=== PATIENT | female | born 2000 | race Caucasian/White ===

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

== ENCOUNTER 2021-01-09 10:44 | Emergency (ER) | payer MEDICAID, SELFPAY ==
[2021-01-09 10:46] VITALS: BP 122/80; PULSE 113; RESP 18; TEMP 36.2; O2SAT 99; BMI 23.2
--- NOTE | 2021-01-09 10:59 | EDS_ITS ---
HPI History of Present Illness Chief Complaint: Nausea/Vomiting Detail of Chief Complaint: Nausea and vomiting x8 hours Informant: patient Narrative Narrative: Patient presents to the emergency department with complaint of vomiting for the last 8 hours. Patient believes that she drank too much alcohol and has alcohol poisoning. Patient states that she never drinks alcohol but last night had 5 shots of vodka. Her last drink was approximately midnight. Patient complaining of some upper abdomen discomfort and now just having dry heaves. She denies fever or recent illness. Patient denies diarrhea. She denies urinary symptoms. Last menstrual period was December 17. Prior similar symptoms: No PFSH PFSH Medical History no medical history Home Medications ondansetron 4 mg PO Q8H PRN PRN #10 tab 01/09/21 [Rx Last Taken Unknown] Allergy/AdvReac Type Severity Reaction Status Date / Time No Known Allergies Allergy Verified 01/09/21 10:45 Social History Smoking Status: Never smoker ROS ROS ED Constitutional Constitutional ED: Reports systems reviewed and no addt'l complaints, except as documented; Denies body ache(s), change in weight or chills Eyes Eyes: Denies acute decrease in peripheral vision, change in vision, double vision or loss of vision ENT ENT ED: Reports none; Denies ear pain, lip swelling, loss taste/smell, neck pain, otalgia or sore throat Cardiovascular Cardiovascular: Reports none; Denies abdominal pain, chest pain with activity, leg edema, lightheadedness, palpitations, rapid heart rate or syncope Respiratory/Chest Respiratory/Chest: Reports none; Denies change in mental status, dry cough, dyspnea, hemoptysis, shortness of breath at rest or shortness of breath with exertion Gastrointestinal Gastrointestinal: Reports none, abdominal pain, nausea and vomiting; Denies change in stool character, diarrhea, hematemesis, hematochezia, melena or rectal bleeding Genitourinary Genitourinary ED: Reports none; Denies abdominal discomfort, anuria, dysuria, genital pain or polyuria Musculoskeletal Musculoskeletal: Reports none; Denies arthralgias, back pain, difficulty walking, extremity pain, muscle weakness or myalgias Integumentary Reports none; Denies abscess or rash Neurologic Neurologic: Reports none; Denies abnormal gait, confusion, focal weakness, frequent falls, headache(s), loss of vision, numbness, paresthesias, radicular pain, vertigo or weakness Psychiatric Psychiatric: Reports systems reviewed and no addt'l complaints, except as documented and none; Denies behavioral changes, confusion, difficulty concentrating, hallucinations, suicidal ideation, tactile hallucinations or visual hallucinations Endocrine Endocrinology: Denies none, cold intolerance, excessive sweating, fatigue or heat intolerance Hematologic/Lymphatic Hematologic/Lymphatic: Reports none; Denies anemia, easy bleeding or easy bruising Allergic/Immunologic Allergic/Immunologic ED: Denies as per HPI, none, lip swelling, mouth swelling, throat swelling, tongue swelling or hives EXAM Physical Exam Const Vital Signs: 01/09/21 10:46 Temperature 97.2 F L Temperature Source Temporal Pulse Rate 113 H Respiratory Rate 18 Blood Pressure 122/80 H Blood Pressure Mean 94 Pulse Ox 99 Oxygen Delivery Method Room Air Positive well nourished and well developed General Appearance ED: well developed and NAD HEENT Reports TM's clear and moist mucous membranes normocephalic and atraumatic; Negative for trauma or tenderness Tympanic Membrane ED: Yes TM's clear Eyes PERRL and EOMs intact bilaterally General Eye ED: Negative for pale conjunctiva or scleral icterus Neck no lymphadenopathy, supple and no JVD General: Negative for tenderness Chest Wall inspection of chest normal and palpation of chest normal Chest: Negative for tenderness Resp normal respiratory effort and clear to auscultation bilaterally Effort and Inspection: Negative for respiratory distress or pain with movement Auscultation: Negative for rhonchi, wheezes or diminished lung sounds Cardio regular rate, regular rhythm, S1 normal heart sound, S2 normal heart sound and no murmurs Peripheral Pulses: pulses 2+ throughout GI normal to inspection, nondistended, normoactive bowel sounds, soft to palpation, non-distended and no masses GI Narrative: Mild tenderness over the epigastric region with some mild guarding. There is no rebound, rigidity, or peritoneal signs. Patient also has mild tenderness over right upper quadrant. Palpation: soft Back/Spine no CVA tenderness and no thoracic nor lumbar tenderness Extremity normal to inspection General Extremety ED: Negative for edema General Extremity: Negative for edema Neuro oriented x3, CN's II-XII intact bilaterally, no sensory deficits noted and gait normal Sensorium / Orientation: awake, alert, oriented to person, oriented to place and oriented to time Motor Exam: strength 5/5 throughout and strength abnormal Psych mental status grossly normal Skin no rashes or lesions noted and no wounds MDM MDM MDM Narrative Medical decision making narrative: IV line was established initially on arrival however patient told the nursing staff that it was very painful and was asked to have it removed. The IV was reestablished and then again it was asked to be removed by the patient. Repeat attempts at another IV were difficult and patient now does not want the IV. Patient was given Zofran IM 4 mg. She had no further vomiting. She was able to tolerate a p.o. challenge. Patient did have an elevated white blood cell count and I suspect this is likely reactive from retching and vomiting. At this point on reexamination her abdomen is benign. Patient had not been ill prior to the episode of drinking last night and I suspect this is all related to alcohol. Patient will be given a prescription for Zofran for home. She is advised to return if persistent vomiting worsening abdominal pain, fever, or condition worsen anyway. Lab Data Attestation: I reviewed the patient's lab results. Labs: Laboratory Results - last 24 hr 01/09/21 01/09/21 01/09/21 11:15 11:15 11:15 WBC 16.4 H RBC 4.59 Hgb 13.8 Hct 40.4 MCV 88.0 MCH 30.1 MCHC 34.2 RDW Std Deviation 37.6 RDW Coeff of Mathew 11.7 Plt Count Immature Gran % (Auto) 0.300 Neut % (Auto) 89.8 H Lymph % (Auto) 8.0 L [place] % (Auto) 1.5 Eos % (Auto) 0.0 Baso % (Auto) 0.4 Absolute Neuts (auto) 14.7 H Absolute Lymphs (auto) 1.31 Nucleated RBC % 0 Differential Comment SCANNED Platelet Estimate ADEQUATE Sodium 136 Potassium 4.1 Chloride 101 Carbon Dioxide 18.0 L Anion Gap 17 H BUN 24 H Creatinine 0.74 Estim Creat Clear Calc 92.27 Est GFR (MDRD) Af Amer 128 Est GFR (MDRD) Non-Af 106 BUN/Creatinine Ratio 32.2 H Glucose 73 L Calcium 9.7 Total Bilirubin 0.50 AST 51 H ALT 37 Alkaline Phosphatase 107 Total Protein 9.3 H Albumin 4.9 Globulin 4.4 H Albumin/Globulin Ratio 1.1 Lipase 83 Serum , Qual NEGATIVE Ethyl Alcohol 01/09/21 11:15 WBC RBC Hgb Hct MCV MCH MCHC RDW Std Deviation RDW Coeff of Mathew Plt Count Immature Gran % (Auto) Neut % (Auto) Lymph % (Auto) [place] % (Auto) Eos % (Auto) Baso % (Auto) Absolute Neuts (auto) Absolute Lymphs (auto) Nucleated RBC % Differential Comment Platelet Estimate Sodium Potassium Chloride Carbon Dioxide Anion Gap BUN Creatinine Estim Creat Clear Calc Est GFR (MDRD) Af Amer Est GFR (MDRD) Non-Af BUN/Creatinine Ratio Glucose Calcium Total Bilirubin AST ALT Alkaline Phosphatase Total Protein Albumin Globulin Albumin/Globulin Ratio Lipase Serum , Qual Ethyl Alcohol 5.0 Discharge Plan Triage Chief Complaint: Nausea/Vomiting ED Provider: Aura Gutierrez Dx/Rx/DC Orders Clinical Impression: Alcohol withdrawal Instructions: Alcohol Withdrawal: What to Expect, ED Vomiting (Adult) Prescriptions: New ondansetron [ondansetron] 4 MG tablet 4 mg PO Q8H PRN PRN (Reason: Nausea) Qty: 10 RF: 0 Primary Care Provider: Rogelio Mathis Referrals: Rogelio Mathis MD [Primary Care Provider] - 3-5 Days Disposition Disposition: Home, Self Care
[2021-01-09] MEDS: Ondansetron 4 MG/2 ML Vial IV (11:32)
[2021-01-09 11:33] LABS: Absolute Lymphocyte Count 1.31 X10^3/uL (0.83-4.51); Absolute Neutrophil Count 14.7 X10^3/uL (2.0-7.7); Basophil# 0.06 X10^3/uL; Basophil% 0.4 % (0-1); Hematocrit 40.4 % (37-47); Hemoglobin 13.8 g/dL (12.0-15.0); Lymphocyte # 1.31 X10^3/ul (0.83-4.51); Mean Corp Hgb Conc 34.2 g/dL (32-36); Mean Corpuscular Hgb 30.1 pg (27.0-32.0); Monocyte# 0.25 X10^3/uL; Monocyte% 1.5 % (0-10); NRBC Flagged by Analyzer 0 % (0-5); Neutrophil # 14.69 X10^3/uL (2.7-7.7); Neutrophil % 89.8 % (47-70); POSITIVE COUNT YES; RBC Distribution Width CV 11.7 % (11.6-14.6); RBC Distribution Width SD 37.6 fl (35.1-43.9); Red Blood Count 4.59 M/mm3 (4.2-5.4); White Blood Count 16.4 K/mm3 (4.4-11.0)
[2021-01-09 11:51] LABS: Internal QC Validated? YES +Cl - CLEAR BKGD; Pregnancy, Serum, hCG Quali. NEGATIVE Negative
--- NOTE | 2021-01-09 11:51 | ED.RN ---
1125: Pt states that she is numb from her shoulder to her finger tips lt arm and the IV is so painful. Flowing freely with good blood return, but IV removed. resource room special education teacher with attempt to 2 for additional iv access wthout success. Med order changed to IM per MD Gutierrez.
[2021-01-09 11:59] LABS: ALB/GLOB Ratio 1.1 RATIO (0.9-2.4); AST(SGOT) 51 U/L (15-37); Alanine Aminotransfer ALT/SGPT 37 U/L (13-56); Albumin, Serum 4.9 g/dL (3.2-5.0); Alkaline Phosphatase 107 U/L (45-117); Anion Gap 17 (5-15); BUN 24 mg/dL (7-18); BUN/Creat Ratio 32.2 RATIO (10-20); Calcium,Total 9.7 mg/dL (8.5-10.1); Chloride 101 mmol/L (98-107); Creatinine, Serum 0.74 mg/dL (0.55-1.02); EST Glomerular Filtration Rate 106 mL/min (>60); Est Glom Filt Rate - Afr Amer 128 mL/min (>60); Estimated Creatinine Clearance 92.27 ml/min; Globulin 4.4 g/dL (2.2-4.2); Glucose 73 mg/dL (74-106); Lipase 83 U/L (73-393); Potassium 4.1 mmol/L (3.5-5.1); Protein, Total 9.3 g/dL (6.4-8.2); Sodium Level 136 mmol/L (136-145)
[2021-01-09 12:07] LABS: Differential Comment SCANNED
[2021-01-09 12:08] LABS: Platelet Estimate ADEQUATE (ADEQ)
== END 2021-01-09 12:29 | disposition home or self-care (01) ==
PROVIDERS: Emergency Provider Emergency Medicine; PCP Family Medicine
DX: F10.239 Alcohol dependence with withdrawal, unspecified (principal)
CPT/HCPCS: 80053; 82077; 83690; 84703; 85025; 96374; 99284; J7030; A4216; J2405

== ENCOUNTER → 2021-02-14 11:16 | Outpatient (CLI) | payer MEDICAID, SELFPAY ==
[2021-02-14 14:12] LABS: hCG Titer Quant., Serum < 1 mIU/mL (1-3)
[2021-02-14 14:20] LABS: Thyroid Stim Hormone (TSH) 1.12 uIU/mL (0.358-3.74)
== END ==
PROVIDERS: PCP Family Medicine; Visit Provider Student in an Organized Health Care Education/Training Program
DX: N91.2 Amenorrhea, unspecified (principal)
CPT/HCPCS: 36415; 84443; 84702

== ENCOUNTER → 2021-08-12 | Outpatient (CLI) | payer MEDICAID, SELFPAY ==
[2021-08-12 13:36] LABS: Absolute Lymphocyte Count 1.98 X10^3/uL (0.83-4.51); Absolute Neutrophil Count 7.5 X10^3/uL (2.0-7.7); Basophil# 0.03 X10^3/uL; Basophil% 0.3 % (0-1); Eosinophil# 0.03 X10^3/uL; Eosinophils% 0.3 % (0-5); Hematocrit 35.9 % (37-47); Hemoglobin 12.1 g/dL (12.0-15.0); Lymphocyte # 1.98 X10^3/ul (0.83-4.51); Lymphocyte % 19.7 % (19-41); Mean Corp Hgb Conc 33.7 g/dL (32-36); Mean Corpuscular Hgb 31.4 pg (27.0-32.0); Mean Corpuscular Volume 93.2 fL (81-99); Mean Platelet Vol. 11.4 fl (6.2-12.0); NRBC Flagged by Analyzer 0 % (0-5); Neutrophil # 7.46 X10^3/uL (2.7-7.7); Neutrophil % 74.3 % (47-70); Platelet Count 306 K/mm3 (150-450); RBC Distribution Width CV 11.7 % (11.6-14.6); RBC Distribution Width SD 39.5 fl (35.1-43.9); Red Blood Count 3.85 M/mm3 (4.2-5.4)
[2021-08-12 15:11] LABS: HIV - WCH Non-Reactive (Nonreactive); Hepatitis B Surface Antigen Non-Reactive (Nonreactive); Hepatitis C Antibody Non-Reactive (Nonreactive); Rubella IgG Reactive (Nonreactive); Syphilis Antibodies Non-reactive
[2021-08-16 05:06] LABS: Chlamydia By Nucleic Acid AMP Negative (Negative)
[2021-08-16 11:27] LABS: Gonococcus By Nucleic Acid AMP Negative (Negative)
== END | disposition home or self-care (01) ==
PROVIDERS: PCP Family Medicine; Visit Provider Student in an Organized Health Care Education/Training Program
DX: Z34.81 Encounter for supervision of other normal pregnancy, first trimester (principal); Z11.3 Encounter for screening for infections with a predominantly sexual mode of transmission
CPT/HCPCS: 36415; 85025; 86703; 86762; 86780; 86803; 87086; 87088; 87340; 87491; 87591

== ENCOUNTER → 2021-09-26 | Outpatient (CLI) | payer MEDICAID, SELFPAY | END | disposition home or self-care (01) | LOC: LABSPEC 11:08 | PROVIDERS: PCP Family Medicine; Visit Provider Student in an Organized Health Care Education/Training Program | DX: N39.0 Urinary tract infection, site not specified (principal) | CPT/HCPCS: 87086; 87088 ==

== ENCOUNTER 2021-10-29 10:53 | Emergency (ER) | payer MEDICAID, SELFPAY ==
[2021-10-29 10:55] VITALS: BP 127/74; PULSE 88; RESP 17; TEMP 36.6; O2SAT 100; BMI 27.3
--- NOTE | 2021-10-29 11:07 | EX.ED.DYSGE1 ---
HPI History of Present Illness Chief Complaint: Abd Pain Informant: patient Onset/Context/Timing Onset: Today Current Severity: Mild Maximum Severity: Moderate Narrative Narrative: Patient present secondary to right-sided abdominal pain. She states it feels like it starts in her right mid abdomen and wraps around to the right flank area. She is currently 20 weeks . She did take 500 mg of Tylenol approximately an hour and a half prior to arrival. She denies urinary symptoms. She does report some intermittent nausea with the and last required Zofran yesterday morning. Normal bowel movements. She does report having a temperature of 101 yesterday but had no other symptoms. No fever today. PFSH PFSH Medical History no medical history no medical history Home Medications ondansetron 4 mg disintegrating tablet 4 mg PO Q8H PRN PRN Nausea #10 tabs 01/09/21 [Rx Last Taken Unknown] cephalexin 500 mg capsule 500 mg PO Q8H #30 caps 10/29/21 [Rx Last Taken Unknown] promethazine 12.5 mg tablet 12.5 mg PO Q6H PRN Nausea 10/29/21 [History Last Taken Unknown] Allergy/AdvReac Type Severity Reaction Status Date / Time No Known Allergies Allergy Verified 10/29/21 10:54 Surgical History no surgical history Social History Smoking Status: Never smoker ROS ROS ED Constitutional Constitutional ED: Reports fever(s); Denies chills Eyes Eyes: Denies change in vision or discharge from eye(s) ENT ENT ED: Denies discharge from eye(s), rhinorrhea or sore throat Cardiovascular Cardiovascular: Denies chest pain or palpitations Respiratory/Chest Respiratory/Chest: Denies cough or dyspnea Gastrointestinal Gastrointestinal: Reports abdominal pain and nausea; Denies diarrhea or vomiting Genitourinary Genitourinary ED: Denies difficulty urinating or dysuria Musculoskeletal Musculoskeletal: Denies back pain or extremity pain Integumentary Denies Abrasions or rash Neurologic Neurologic: Denies headache(s) or weakness Psychiatric Psychiatric: Denies anxiety or depression Allergic/Immunologic Allergic/Immunologic ED: Denies lip swelling or urticaria EXAM Physical Exam Const Vital Signs: 10/29/21 10:55 Temperature 97.8 F Temperature Source Temporal Pulse Rate 88 Respiratory Rate 17 Blood Pressure 127/74 H Blood Pressure Mean 91 Pulse Ox 100 Oxygen Delivery Method Room Air Positive well nourished and well developed General Appearance ED: well developed HEENT Reports normocephalic and head/scalp atraumatic Eyes PERRL and EOMs intact bilaterally Neck supple Chest Wall inspection of chest normal and palpation of chest normal Resp normal respiratory effort and clear to auscultation bilaterally Cardio regular rate and regular rhythm GI GI Narrative: Abdomen gravid. Nontender to palpation. Hypoactive bowel sounds. Palpation: soft Extremity normal to inspection Neuro oriented x3 and no sensory deficits noted Sensorium / Orientation: alert Motor Exam: strength 5/5 throughout Psych mental status grossly normal Skin no rashes or lesions noted MDM MDM MDM Narrative Medical decision making narrative: Patient was given an additional 500 mg of Tylenol as she had only had 500 mg this morning. Lab work and urinalysis obtained. heart tones ordered. COVID swab was ordered however patient declined this. Lab Data Attestation: I reviewed the patient's lab results. Labs: Laboratory Results - last 24 hr 10/29/21 10/29/21 10/29/21 11:20 11:20 11:30 WBC 9.4 RBC 3.43 L Hgb 10.9 L Hct 32.1 L MCV 93.6 MCH 31.8 MCHC 34.0 RDW Std Deviation 41.8 RDW Coeff of Mathew 12.2 Plt Count 257 MPV 10.8 Immature Gran % (Auto) 0.700 Neut % (Auto) 71.6 H Lymph % (Auto) 23.2 [place] % (Auto) 3.7 Eos % (Auto) 0.4 Baso % (Auto) 0.4 Absolute Neuts (auto) 6.7 Absolute Lymphs (auto) 2.17 Nucleated RBC % 0 Sodium 138 Potassium 4.1 Chloride 108 H Carbon Dioxide 23.0 Anion Gap 7 BUN 6 L Creatinine 0.57 Estim Creat Clear Calc 118.80 Est GFR (MDRD) Af Amer 174 Est GFR (MDRD) Non-Af 144 BUN/Creatinine Ratio 10.6 Glucose 86 Calcium 8.9 Total Bilirubin 0.30 Direct Bilirubin < 0.05 AST 21 ALT 12 L Alkaline Phosphatase 50 Total Protein 7.0 Albumin 2.9 L Globulin 4.1 Urine Color Yellow Urine Clarity Clear Urine pH 7.0 Ur Specific [place] 1.005 Urine Protein Negative Urine Glucose (UA) Normal Urine Ketones Negative Urine Occult Blood Negative Urine Nitrite Negative Urine Bilirubin Negative Urine Urobilinogen Normal Ur Leukocyte Esterase 500 H Urine RBC 0 SEEN Urine WBC 25-50 SEEN Ur Squamous Epith Cells 0-5 SEEN Urine Bacteria 1+ Urine Mucus 0 SEEN Treatment and Re-Evaluation Narrative: CBC, chemistry studies, LFTs are all unremarkable. Urinalysis does reveal 25-50 white cells with 1+ bacteria. Urine nitrites are negative. In reviewing previous urine cultures mixed organisms have been noted. heart tones are measured at 130. Patient is treated with a dose of Keflex. I spoke with the patient's PHYSICIAN PRACTICE COORDINATOR, Dr. Anu Al. Patient will be seen in the office on Sunday for follow-up. If patient develops another fever she is to call Dr. Al as she may require IV antibiotics for pyelonephritis treatment. Patient is comfortable with this plan. Discharge Plan Triage Chief Complaint: Abd Pain ED Provider: Leandra Duong Dx/Rx/DC Orders Clinical Impression: Pyelonephritis Instructions: ED Pyelonephritis, Female (Adult) Prescriptions: New cephalexin 500 mg capsule 500 mg PO Q8H Qty: 30 0RF No Action ondansetron [ondansetron] 4 MG tablet 4 mg PO Q8H PRN PRN (Reason: Nausea) Qty: 10 0RF promethazine 12.5 mg tablet 12.5 mg PO Q6H PRN (Reason: Nausea) Label Comments: TAKE 1 TABLET BY MOUTH EVERY 6 (SIX) hours NEEDED Primary Care Provider: Rogelio Mathis Referrals: Anu Al DO [Med Staff - Active Staff] - Keep Ricky appointment Rogelio Mathis MD [Primary Care Provider] - Disposition Disposition: Home, Self Care
[2021-10-29] MEDS: Acetaminophen 500 MG Tablet PO (11:13)
[2021-10-29 11:36] LABS: Mucous, Urine 0 SEEN /hpf (<or=2+); Red Blood Cells-Urine 0 SEEN /hpf (0-5)
[2021-10-29 11:38] LABS: Absolute Lymphocyte Count 2.17 X10^3/uL (0.83-4.51); Absolute Neutrophil Count 6.7 X10^3/uL (2.0-7.7); Basophil# 0.04 X10^3/uL; Basophil% 0.4 % (0-1); Eosinophil# 0.04 X10^3/uL; Eosinophils% 0.4 % (0-5); Hematocrit 32.1 % (37-47); Hemoglobin 10.9 g/dL (12.0-15.0); Lymphocyte # 2.17 X10^3/ul (0.83-4.51); Lymphocyte % 23.2 % (19-41); Mean Corpuscular Hgb 31.8 pg (27.0-32.0); Mean Corpuscular Volume 93.6 fL (81-99); Mean Platelet Vol. 10.8 fl (6.2-12.0); Monocyte# 0.35 X10^3/uL; Monocyte% 3.7 % (0-10); NRBC Flagged by Analyzer 0 % (0-5); Neutrophil % 71.6 % (47-70); Platelet Count 257 K/mm3 (150-450); RBC Distribution Width CV 12.2 % (11.6-14.6); RBC Distribution Width SD 41.8 fl (35.1-43.9); Red Blood Count 3.43 M/mm3 (4.2-5.4); White Blood Count 9.4 K/mm3 (4.4-11.0)
[2021-10-29 11:38] LABS: Color, Urine Yellow (Yellow); Glucose, Dipstick Normal (Normal); Ketone-Dipstick Negative (Negative); Leukocyte Esterase-Dipstick 500 /ul (Negative); Nitrite-Dipstick Negative (Negative); Occult Blood-Urine Negative /ul (Negative); Protein-Dipstick Negative (Negative); Specific Gravity, Urine 1.005 (1.002-1.030); Urine Bilirubin Dipstick Negative (Negative); Urine Clarity Clear (Clear); Urine Urobilinogen Normal (Normal)
[2021-10-29 11:51] LABS: Bacteria 1+ /hpf (None Seen); Squamous Epithelial Cells - UA 0-5 SEEN /hpf (5-10); White Blood Cells 25-50 SEEN /hpf (0-5)
[2021-10-29 11:52] LABS: AST(SGOT) 21 U/L (15-37); Alanine Aminotransfer ALT/SGPT 12 U/L (13-56); Albumin, Serum 2.9 g/dL (3.2-5.0); Alkaline Phosphatase 50 U/L (45-117); Anion Gap 7 (5-15); BUN 6 mg/dL (7-18); BUN/Creat Ratio 10.6 RATIO (10-20); Bilirubin, Direct < 0.05 mg/dL (0.00-0.30); Calcium,Total 8.9 mg/dL (8.5-10.1); Chloride 108 mmol/L (98-107); Creatinine, Serum 0.57 mg/dL (0.55-1.02); EST Glomerular Filtration Rate 144 mL/min (>60); Est Glom Filt Rate - Afr Amer 174 mL/min (>60); Globulin 4.1 g/dL (2.2-4.2); Glucose 86 mg/dL (74-106); Potassium 4.1 mmol/L (3.5-5.1); Sodium Level 138 mmol/L (136-145)
[2021-10-29] MEDS: Cephalexin 250 MG Capsule 500 MG PO (12:42)
[2021-10-29 13:14] VITALS: BP 118/78; PULSE 78; RESP 14; TEMP 37.2; O2SAT 99
--- NOTE | 2021-10-29 13:16 | ED.RN ---
pt refuses covid swab. aware
== END 2021-10-29 13:16 | disposition home or self-care (01) ==
PROVIDERS: Emergency Provider Emergency Medicine; PCP Family Medicine; Visit Provider Emergency Medicine
DX: O26.832 Pregnancy related renal disease, second trimester (principal); O26.892 Other specified pregnancy related conditions, second trimester; Z3A.20 20 weeks gestation of pregnancy; N12 Tubulo-interstitial nephritis, not specified as acute or chronic; R10.9 Unspecified abdominal pain
CPT/HCPCS: 80048; 80076; 81001; 85025; 87086; 87088; 99283; J7030; A4216

== ENCOUNTER 2021-12-14 21:04 | Outpatient (CLI) | payer MEDICAID, SELFPAY ==
[2021-12-14 21:22] VITALS: PULSE 120; O2SAT 100
[2021-12-14 21:25] VITALS: BP 128/75; PULSE 86; TEMP 36.7
[2021-12-14 22:31] VITALS: BMI 28.9
--- NOTE | 2021-12-14 23:24 | OB.TRI.NOTE ---
HPI - General General Date of Admission: 12/14/21 HPI Narrative PARVEEN LANGLEYERS, is a 21 F who presents with pelvic cramping PFSH PFSH Home Medications ondansetron 4 mg disintegrating tablet 4 mg PO Q8H PRN PRN Nausea #10 tabs 01/09/21 [Rx Last Taken Unknown] cephalexin 500 mg capsule 500 mg PO Q8H #30 caps 10/29/21 [Rx Last Taken Unknown] promethazine 12.5 mg tablet 12.5 mg PO Q6H PRN Nausea 10/29/21 [History Last Taken Unknown] Allergy/AdvReac Type Severity Reaction Status Date / Time No Known Allergies Allergy Verified 12/14/21 22:33 Social History Smoking Status: Never smoker NST FHR Rate Baby A Baseline: 140 Variability:: Moderate Accelerations:: 10 x 10 Decelerations:: None NST Reactive:: Yes Uterine Activity:: quiet Assessment & Plan (1) : PLAN: Pt with pelvic cramping. CE closed per nursing. No signs of labor. FHT reassuring
== END 2021-12-14 22:20 | disposition home or self-care (01) ==
LOC: WPOUT 21:10 → WP 21:11
PROVIDERS: PCP Family Medicine; Referring Provider Obstetrics & Gynecology; Visit Provider Obstetrics & Gynecology
DX: O26.899 Other specified pregnancy related conditions, unspecified trimester (principal); R10.2 Pelvic and perineal pain; Z3A.00 Weeks of gestation of pregnancy not specified
CPT/HCPCS: 36415; 59025; 59050; 82950; 85025; 87086; 99218; G0378

== ENCOUNTER → 2021-12-14 | Outpatient (CLI) | payer MEDICAID, SELFPAY ==
[2021-12-14 14:39] LABS: Absolute Lymphocyte Count 1.84 X10^3/uL (0.83-4.51); Absolute Neutrophil Count 7.3 X10^3/uL (2.0-7.7); Basophil# 0.02 X10^3/uL; Basophil% 0.2 % (0-1); Eosinophil# 0.05 X10^3/uL; Eosinophils% 0.5 % (0-5); Hematocrit 32.1 % (37-47); Hemoglobin 10.9 g/dL (12.0-15.0); Lymphocyte # 1.84 X10^3/ul (0.83-4.51); Lymphocyte % 18.8 % (19-41); Mean Corpuscular Hgb 32.2 pg (27.0-32.0); Monocyte# 0.49 X10^3/uL; NRBC Flagged by Analyzer 0 % (0-5); Neutrophil # 7.34 X10^3/uL (2.7-7.7); Neutrophil % 74.9 % (47-70); Platelet Count 319 K/mm3 (150-450); RBC Distribution Width CV 11.9 % (11.6-14.6); RBC Distribution Width SD 41.1 fl (35.1-43.9); Red Blood Count 3.38 M/mm3 (4.2-5.4); White Blood Count 9.8 K/mm3 (4.4-11.0)
[2021-12-14 14:47] LABS: Glucose Challenge Gest 1H 50g 126 mg/dL (70-140)
== END | disposition home or self-care (01) ==
PROVIDERS: PCP Family Medicine; Visit Provider Student in an Organized Health Care Education/Training Program
DX: Z34.92 Encounter for supervision of normal pregnancy, unspecified, second trimester (principal); Z34.82 Encounter for supervision of other normal pregnancy, second trimester
CPT/HCPCS: 87086; 36415; 85025; 82950

== ENCOUNTER 2021-12-16 09:00 | Outpatient (CLI) | payer MEDICAID, SELFPAY ==
[2021-12-16 09:16] VITALS: BMI 27.8
[2021-12-16 09:19] VITALS: BP 133/63; PULSE 99; TEMP 37.1; O2SAT 98
[2021-12-16 09:20] VITALS: PULSE 99; O2SAT 98
[2021-12-16 10:14] LABS: Color, Urine Yellow (Yellow); Glucose, Dipstick Normal (Normal); Ketone-Dipstick 50 mg/dl (Negative); Leukocyte Esterase-Dipstick 500 /ul (Negative); Nitrite-Dipstick Negative (Negative); Occult Blood-Urine 10 /ul (Negative); Protein-Dipstick 15 mg/dl (Negative); Specific Gravity, Urine 1.015 (1.002-1.030); Urine Bilirubin Dipstick Negative (Negative); Urine Clarity Sl. Cloudy (Clear); Urine Urobilinogen Normal (Normal); Urine pH 6.5 (5.0 - 8.0)
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
--- NOTE | 2021-12-16 16:30 | CASEMGMT ---
Social Work Labor and Delivery 1330 - Spoke with Nuris from [facility] and updated to patient's [place] Depression Screen, for continuity of care of this patient during the period. 1630 -Completed [facility] referral via the [facility] secure web based referral system. No other services requested or indicated at this time. -ANKIT Mason, FLASHER ADJUSTER
--- NOTE | 2021-12-16 21:09 | OB.TRI.NOTE ---
HPI - General General Date of Admission: 12/16/21 HPI Narrative PARVEEN BROTHERS, is a 21 F who presents with pelvic pain PFSH PFSH Home Medications ondansetron 4 mg disintegrating tablet 4 mg PO Q8H PRN PRN Nausea #10 tabs 01/09/21 [Rx Last Taken 12/12/21] acetaminophen 500 mg tablet 500 mg PO PRN PRN Pain 12/16/21 [History Last Taken 12/15/21 20:00] vit with calcium-iron fum-folic acid 60 mg iron-1 mg tablet 1 tab PO DAILY 12/16/21 [History Last Taken 12/16/21 07:00] Allergy/AdvReac Type Severity Reaction Status Date / Time No Known Allergies Allergy Verified 12/16/21 09:16 Social History Smoking Status: Never smoker NST FHR Rate Baby A Baseline: 130 Variability:: Moderate Accelerations:: 10 x 10 Decelerations:: None NST Reactive:: Yes Uterine Activity:: quiet Assessment & Plan (1) : PLAN: Pt with pelvic pain, afebrile VSS. PO hydrate. UA/UC, will call with results
== END 2021-12-16 12:40 | disposition home or self-care (01) ==
LOC: WPOUT 09:08 → WP 09:08
PROVIDERS: PCP Family Medicine; Referring Provider Obstetrics & Gynecology; Visit Provider Obstetrics & Gynecology
DX: O26.899 Other specified pregnancy related conditions, unspecified trimester (principal); R10.2 Pelvic and perineal pain; Z3A.00 Weeks of gestation of pregnancy not specified
CPT/HCPCS: 59025; 59050; 81002; 87086; 87088; 99218; G0378

== ENCOUNTER 2021-12-28 15:50 | Outpatient (CLI) | payer MEDICAID, SELFPAY ==
[2021-12-28 16:04] VITALS: BMI 28.3
[2021-12-28 16:05] VITALS: PULSE 99; O2SAT 98
[2021-12-28 17:03] LABS: Mucous, Urine 0 SEEN /hpf (<or=2+); Red Blood Cells-Urine 0 SEEN /hpf (0-5)
[2021-12-28 17:11] LABS: Color, Urine Yellow (Yellow); Glucose, Dipstick Normal (Normal); Ketone-Dipstick 15 mg/dl (Negative); Leukocyte Esterase-Dipstick 500 /ul (Negative); Nitrite-Dipstick Negative (Negative); Occult Blood-Urine Negative /ul (Negative); Protein-Dipstick Negative (Negative); Urine Bilirubin Dipstick Negative (Negative); Urine Clarity Clear (Clear); Urine Urobilinogen Normal (Normal)
[2021-12-28 17:17] LABS: Bacteria 1+ /hpf (None Seen); Squamous Epithelial Cells - UA 0-5 SEEN /hpf (5-10); White Blood Cells 5-10 SEEN /hpf (0-5)
[2021-12-28] MEDS: 0.9% Normal Saline 1,000 ML 150 ML IV (18:00)
[2021-12-28 18:15] LABS: Absolute Lymphocyte Count 2.54 X10^3/uL (0.83-4.51); Absolute Neutrophil Count 10.8 X10^3/uL (2.0-7.7); Basophil# 0.03 X10^3/uL; Basophil% 0.2 % (0-1); Eosinophil# 0.04 X10^3/uL; Eosinophils% 0.3 % (0-5); Hematocrit 29.7 % (37-47); Hemoglobin 9.9 g/dL (12.0-15.0); Lymphocyte # 2.54 X10^3/ul (0.83-4.51); Mean Corp Hgb Conc 33.3 g/dL (32-36); Mean Corpuscular Hgb 31.4 pg (27.0-32.0); Mean Corpuscular Volume 94.3 fL (81-99); Mean Platelet Vol. 10.2 fl (6.2-12.0); Monocyte# 0.68 X10^3/uL; Monocyte% 4.8 % (0-10); NRBC Flagged by Analyzer 0 % (0-5); Neutrophil # 10.78 X10^3/uL (2.7-7.7); Neutrophil % 76.1 % (47-70); Platelet Count 308 K/mm3 (150-450); RBC Distribution Width CV 12.2 % (11.6-14.6); Red Blood Count 3.15 M/mm3 (4.2-5.4); White Blood Count 14.2 K/mm3 (4.4-11.0)
[2021-12-28 18:16] LABS: POSITIVE COUNT NO; POSITIVE DIFFERENTIAL NO; POSITIVE MORPHOLOGY NO
[2021-12-28] MEDS: Acetaminophen 500 MG Tablet 1000 MG PO (18:17)
[2021-12-28 18:28] LABS: Anion Gap 10 (5-15); BUN 9 mg/dL (7-18); BUN/Creat Ratio 22.1 RATIO (10-20); Calcium,Total 8.7 mg/dL (8.5-10.1); Chloride 109 mmol/L (98-107); Creatinine, Serum 0.41 mg/dL (0.55-1.02); EST Glomerular Filtration Rate 210 mL/min (>60); Est Glom Filt Rate - Afr Amer 254 mL/min (>60); Estimated Creatinine Clearance 165.16 ml/min; Glucose 80 mg/dL (74-106); Potassium 3.5 mmol/L (3.5-5.1); Sodium Level 139 mmol/L (136-145)
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
[2021-12-28] MEDS: Ceftriaxone 1 GM/50 ML BAG IV (18:45)
[2021-12-28 19:44] VITALS: BP 138/74; PULSE 108; O2SAT 98
[2021-12-28 19:49] VITALS: TEMP 37.8
[2021-12-28] MEDS: cycloBENZAPRine HCl 10 MG Tablet PO (19:50)
[2021-12-28 20:43] VITALS: TEMP 37.3
[2021-12-29] MEDS: 0.9% Normal Saline 1,000 ML 150 ML IV (00:40)
[2021-12-29] MEDS: Acetaminophen 500 MG Tablet 1000 MG PO (00:42)
[2021-12-29 00:44] VITALS: BP 127/62; PULSE 84
[2021-12-29 05:17] VITALS: BP 117/65; PULSE 87; PULSE 90; TEMP 37; O2SAT 99
--- NOTE | 2021-12-29 08:02 | DCINST_ITS ---
Discharge Instructions Diet Discharge Diet: No restrictions Activity Discharge Activity: Return to Normal Activity, May Drive and May Shower May resume sexual activity in: No Restrictions Weight Bearing Status: Weight bearing as tolerated Dressing / Incision Call your doctor if your incision/area has: Continuous Slow Oozing and Foul Smelling Discharge Call your doctor if you observe: Fever of 101 or Higher, Shortness of breath and Chest pain Follow Up Care Please Follow Up With: Anu Al DO When: within 1 week Test Results: Test results from this visit will be discussed in further detail at your follow- up appointment, if applicable. Discharge Plan Admission Reason For Visit: OBSERVATION Attending Provider: Akbar Al Primary Care Provider: Rogelio Mathis Discharge Orders/Prescriptions Prescriptions: No Action ondansetron [ondansetron] 4 MG tablet 4 mg PO Q8H PRN PRN (Reason: Nausea) Qty: 10 0RF acetaminophen 500 mg tablet 500 mg PO PRN PRN (Reason: Pain) Label Comments: TAKE 1 TABLET BY MOUTH EVERY 4 TO 6 HOURS NEEDED Fa 60 mg iron-1 mg Tablet 1 tab PO DAILY Referrals / Follow Up: Rogelio Mathis MD [Primary Care Provider] - Disposition Patient Disposition: Home, Self Care
--- NOTE | 2021-12-29 08:02 | PCM.PN.OB ---
Subjective Subjective No major changes. Denies headache, visual changes, chest pain, shortness of breath, fevers, chills Objective Data Objective Data Vital Signs: Vital Signs Temp Pulse BP Pulse Ox 98.6 F 87 117/65 99 12/29/21 05:17 12/29/21 05:17 12/29/21 05:17 12/29/21 05:17 Weight: 150 lb Body Mass Index (BMI) 28.3 Intake & Output: Intake and Output for Last 24 Hours 12/27/21 12/28/21 12/29/21 23:59 23:59 23:59 Intake Total 50 / 50 1000 / 1000 Balance 50 / 50 1000 / 1000 Lab / Micro Data Result Diagrams: 12/28/21 18:00 12/28/21 18:00 Labs: Laboratory Results - last 24 hr 12/28/21 16:50: Urine Color Yellow, Urine Clarity Clear, Urine pH 6.0, Ur Specific [place] 1.020, Urine Protein Negative, Urine Glucose (UA) Normal, Urine Ketones 15 H, Urine Occult Blood Negative, Urine Nitrite Negative, Urine Bilirubin Negative, Urine Urobilinogen Normal, Ur Leukocyte Esterase 500 H, Urine RBC 0 SEEN, Urine WBC 5-10 SEEN, Ur Squamous Epith Cells 0-5 SEEN, Urine Bacteria 1+, Urine Mucus 0 SEEN 12/28/21 18:00: WBC 14.2 H, RBC 3.15 L, Hgb 9.9 L, Hct 29.7 L, MCV 94.3, MCH 31.4, MCHC 33.3, RDW Std Deviation 42.0, RDW Coeff of Mathew 12.2, Plt Count 308, MPV 10.2, Immature Gran % (Auto) 0.600, Neut % (Auto) 76.1 H, Lymph % (Auto) 18.0 L, [place] % (Auto) 4.8, Eos % (Auto) 0.3, Baso % (Auto) 0.2, Absolute Neuts (auto) 10.8 H, Absolute Lymphs (auto) 2.54, Nucleated RBC % 0 12/28/21 18:00: Sodium 139, Potassium 3.5, Chloride 109 H, Carbon Dioxide 20.0 L, Anion Gap 10, BUN 9, Creatinine 0.41 L, Estim Creat Clear Calc 165.16, Est GFR (MDRD) Af Amer 254, Est GFR (MDRD) Non-Af 210, BUN/Creatinine Ratio 22.1 H, Glucose 80, Calcium 8.7 Physical Exam Const alert, oriented x3, no apparent distress, average body habitus, healthy appearing and well nourished HEENT normocephalic and moist oral mucous membranes Eyes PERRL Neck full ROM Resp normal respiratory effort, no retractions and no use of accessory muscles GI GI Narrative: Soft, nontender, gravid Back/Spine no CVA tenderness Extremity normal to inspection and no clubbing, cyanosis or edema Neuro moves all extremities and no focal motor deficits Psych mental status grossly normal, affect normal, speech normal and activity/motor behavior normal Assessment & Plan (1) : PLAN: Patient seen and examined. Patient overall stable vital signs stable. Still with right-sided back pain no fevers chills no CVA tenderness. Status post 1 g Rocephin and overnight IV fluids. We discussed safety at home, patient states feels very safe at home and understands options for emergencies. Okay to discharge home and follow-up in office.
[2021-12-29 08:48] VITALS: BP 124/65; PULSE 86; O2SAT 99
[2021-12-29 08:49] VITALS: TEMP 37.4
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
== END 2021-12-29 09:35 | disposition home or self-care (01) ==
LOC: WPOUT 16:03 → WP 16:03
PROVIDERS: PCP Family Medicine; Visit Provider Obstetrics & Gynecology
DX: O23.43 Unspecified infection of urinary tract in pregnancy, third trimester (principal); M54.9 Dorsalgia, unspecified; Z3A.28 28 weeks gestation of pregnancy; Z87.891 Personal history of nicotine dependence
CPT/HCPCS: 96360; 96361 ×11; 59025; 59050; 80048; 81001; 85025; 87086; 87088; 99218; J7030; G0378

== ENCOUNTER → 2022-02-01 | Outpatient (CLI) | payer MEDICAID, SELFPAY ==
[2022-02-01 15:49] LABS: Amphetamine Urine VISTA NEGATIVE (<1000 ng/mL); Barbiturate Urine VISTA NEGATIVE (< 200 ng/mL); Benzodiazepine Urine VISTA NEGATIVE (< 200 ng/mL); Cocaine Urine VISTA NEGATIVE (< 300 ng/mL); Ecstacy Urine VISTA NEGATIVE (< 500 ng/mL); Methadone Urine VISTA NEGATIVE (< 300 ng/mL); PCP Urine VISTA NEGATIVE (< 25 ng/mL); THC Urine VISTA POSITIVE (< 50 ng/mL); Vista UDS pH Range 7
== END | disposition home or self-care (01) ==
PROVIDERS: PCP Family Medicine; Visit Provider Nurse Practitioner Women's Health
DX: Z34.90 Encounter for supervision of normal pregnancy, unspecified, unspecified trimester (principal)
CPT/HCPCS: 80307

== ENCOUNTER 2022-02-13 16:09 | Outpatient (CLI) | payer MEDICAID, SELFPAY ==
[2022-02-13 16:19] VITALS: BMI 30.8
[2022-02-13 16:35] VITALS: BP 119/74; PULSE 99; TEMP 37.1; O2SAT 98
[2022-02-13 17:07] LABS: ROM Internal Control Test YES-OK TO RESULT pt. (Internal QC); ROM Patient Test Negative (Negative)
--- NOTE | 2022-02-15 11:03 | OB.TRI.HP_ITS ---
HPI - General HPI Narrative PARVEEN BROTHERS, is a 21 F who presents with LOF/ decreased FM Maternal Data Information VIMAL Calculator Estimated Delivery Date Method Current WG Current Estimate 03/18/22 LMP (Certain) 35w 4d PFSH PFSH Home Medications ondansetron 4 mg disintegrating tablet 4 mg PO Q8H PRN PRN Nausea #10 tabs 01/09/21 [Rx Last Taken 12/28/21 08:00 4 mg] acetaminophen 500 mg tablet 500 mg PO PRN PRN Pain 12/16/21 [History Last Taken 12/15/21 20:00] vit with calcium-iron fum-folic acid 60 mg iron-1 mg tablet 1 tab PO DA MALIK 12/16/21 [History Last Taken 12/28/21 08:00 1 tab] iron fum,pscplx 125 mg-folic acid 1 mg-vit C 40 mg-niacin 3 mg capsule (Integra F) 1 cap PO DAILY #30 caps 01/04/22 [Rx Last Taken Unknown] hydroxyzine pamoate 25 mg capsule (Vistaril) 25 mg PO TID PRN anxiety #60 caps 01/18/22 [Rx Last Taken Unknown] Allergy/AdvReac Type Severity Reaction Status Date / Time No Known Allergies Allergy Verified 02/13/22 16:23 Social History adopted: No household members: family housing: house current occupational status: unemployed pets and animals: Yes pets and animals: dog(s) history of recent travel: No sexually active: Yes Smoking Status: Never smoker alcohol intake: never substance use type: does not use well-balanced diet: daily or most days caffeine: Yes Type: coffee Number of servings: 1 eating out: rarely or never during the past year weight has: increased > 10 lbs what type of physical activity do you participate in: none leonarda/religious: Cheondoism seatbelt use: always do you feel safe at home: Yes additional social history: FOB- Inocente Eng History 1 Elective abortions Hx Para 0 Spontaneous abortions Hx # Term Pregnancies Ectopic pregnancies Hx # Pregnancies Multiple births # of living children Visit Details OB Flowsheet Initial Weight: Not Recorded Date -?-?-?-?-?-?-?-?-?-?-?-?- EGA Weight BP Urine Prot -?-?-?-?-?-?-?-?-?-?-?-?- Glucose FHR FuHt Pres Dilation -?-?-?-?-?-?-?-?-?-?-?-?- Effaced St Visit Note 01/04/22 -?-?-?-?-?-?-?-?-?-?-?-?- 29w 4d 159 lb 4 oz 124/79 124/79 Negative -?-?-?-?-?-?-?-?-?-?-?-?- Negative -?-?-?-?-?-?-?-?-?-?-?-?- SHAYY venegas is transf erring care to us. She had an anatomy ultrasound and labs minus a genetic screen that she declined. SHAYY venegas is transferring care to us from [facility] because she only wants a female provider. She had an anatomy ultrasound and labs minus a genetic screen that she declined. she states that [facility] was doing scans on her every visit due to low fluid and small kidney. Records are pending. Consulting [facility]. iron rx given for hg 9.9 01/18/22 -?-?-?-?-?-?-?-?-?-?-?-?- 31w 4d 158 lb 4 oz 126/87 Nega tive -?-?-?-?-?-?-?-?-?-?-?-?- Negative -?-?-?-?-?-?-?-?-?-?-?-?- SHAYY was at [facility] for threatened PTL from 01/07- 01/10. She recieved mag and celestone x 2. She was also given vistaril. She was never found to be dilated, only 50% effaced. ultrasounds there did not show the small kidneys or oligo. She also had a renal ultrasound due to persistent renal colic from a kidney infection in October. 02/01/22 -?-?-?-?-?-?-?-?-?-?-?-?- 33w 4d 162 lb 4 oz 118/64 Nega tive -?-?-?-?-?-?-?-?-?-?-?-?- Negative 151 32 -?-?-?-?-?-?-?-?-?-?-?-?- -No VB, LOF. I rreg CTX. Good FM. 02/13/22 -?-?-?-?-?-?-?-?-?-?-?-?- 35w 2d 165 lb 4 oz 116/74 Nega tive -?-?-?-?-?-?-?-?-?-?-?-?- Negative -?-?-?-?-?-?-?-?-?-?-?-?- -arrived at 15 50 stating leaking fluid X 3-4 days and dec movement today. To WP for eval. NST FHR Rate Baby A Baseline: 140 Variability:: Moderate Accelerations:: 15 x 15 Decelerations:: None NST Reactive:: Yes FHR Category:: Category I Uterine Activity:: no ctx Assessment & Plan (1) Decreased movement: COMMENT: to WP (2) Vaginal discharge during : COMMENT: to WP (3) : QUALIFIERS: Weeks of gestation: 31 weeks Qualified Code(s): Z3A.31 - 31 weeks gestation of COMMENT: Did not do genetic or carrying testing. Anatomy US NL PLAN: Plan Patient presents for triage evaluation secondary to LOF/increased discharge, decreased FM FHT: Moderate variability reactive no decelerations category I tracing [place]: no Contractions Assessment and plan: negative ROM, active fetus. Reactive NST, reassuring maternal and status patient discharged to home to follow-up in office with next appt/PRN. See problem list details for additional plan information. Charges/Coding Procedures Urinary/Genital [id number]: 53477-20 non-stress test Interp
== END 2022-02-13 17:30 | disposition home or self-care (01) ==
LOC: WPOUT 16:12 → WP 16:12
PROVIDERS: PCP Family Medicine; Referring Provider Registered Nurse; Visit Provider Registered Nurse
DX: O36.8130 Decreased fetal movements, third trimester, not applicable or unspecified (principal); O09.10 Supervision of pregnancy with history of ectopic pregnancy, unspecified trimester; N89.8 Other specified noninflammatory disorders of vagina; Z3A.35 35 weeks gestation of pregnancy
CPT/HCPCS: 59025; 59050; 84112

== ENCOUNTER 2022-02-14 12:10 | Outpatient (CLI) | payer MEDICAID, SELFPAY ==
[2022-02-14] VITALS (10 sets, daily range): BP systolic 115–177; BP diastolic 65–79; PULSE 97–127; TEMP 37.6; O2SAT 98; BMI 30.4
[2022-02-14 12:59] LABS: Hematocrit 31.6 % (37-47); Hemoglobin 10.9 g/dL (12.0-15.0); Mean Corp Hgb Conc 34.5 g/dL (32-36); Mean Corpuscular Hgb 32.1 pg (27.0-32.0); Mean Corpuscular Volume 92.9 fL (81-99); Mean Platelet Vol. 10.3 fl (6.2-12.0); Platelet Count 282 K/mm3 (150-450); RBC Distribution Width CV 14.1 % (11.6-14.6); RBC Distribution Width SD 47.5 fl (35.1-43.9); White Blood Count 10.9 K/mm3 (4.4-11.0)
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
[2022-02-14 13:13] LABS: AST(SGOT) 9 U/L (15-37); Alanine Aminotransfer ALT/SGPT 10 U/L (13-56); Creatinine, Serum 0.38 mg/dL (0.55-1.02); EST Glomerular Filtration Rate 228 mL/min (>60); Est Glom Filt Rate - Afr Amer 275 mL/min (>60); Estimated Creatinine Clearance 186.78 ml/min; Uric Acid 2.3 mg/dL (2.6-6.0)
[2022-02-14 14:57] LABS: Protein, Urine (Random) < 6.0 mg/dL (<11.9); Protein:Creat Ratio 404 mg/g CRE (0-200)
--- NOTE | 2022-02-14 15:25 | OB.TRI.NOTE ---
HPI - General HPI Narrative PARVEEN BROTHOG, is a 21 y/op @ 35 weeks [address] [facility] [place] with the complaint of wheezing and swelling in legs. She also has a fever and headache. She was worked up by our nurses on L&D initially and bp's were in normal range. The nurse reported that she heard some rattling in her chest and a CT with PIH labs were ordered along with NST and urine pro:cr ratio. She states that her mother had severe pre-e and she is nervous about pre-eclampsia. Maternal Data Information VIMAL Calculator Estimated Delivery Date Method Current WG Current Estimate 03/18/22 LMP (Certain) 35w 3d PFSH PFSH Home Medications ondansetron 4 mg disintegrating tablet 4 mg PO Q8H PRN PRN Nausea #10 tabs 01/09/21 [Rx Last Taken 12/28/21 08:00 4 mg] acetaminophen 500 mg tablet 500 mg PO PRN PRN Pain 12/16/21 [History Last Taken 12/15/21 20:00] vit with calcium-iron fum-folic acid 60 mg iron-1 mg tablet 1 tab PO DAILY 12/16/21 [History Last Taken 12/28/21 08:00 1 tab] iron fum,pscplx 125 mg-folic acid 1 mg-vit C 40 mg-niacin 3 mg capsule (Integra F) 1 cap PO DAILY #30 caps 01/04/22 [Rx Last Taken Unknown] hydroxyzine pamoate 25 mg capsule (Vistaril) 25 mg PO TID PRN anxiety #60 caps 01/18/22 [Rx Last Taken Unknown] Allergy/AdvReac Type Severity Reaction Status Date / Time No Known Allergies Allergy Verified 02/13/22 16:23 Social History adopted: No household members: family housing: house current occupational status: unemployed pets and animals: Yes pets and animals: dog(s) history of recent travel: No sexually active: Yes Smoking Status: Never smoker alcohol intake: never substance use type: does not use well-balanced diet: daily or most days caffeine: Yes Type: coffee Number of servings: 1 eating out: rarely or never during the past year weight has: increased > 10 lbs what type of physical activity do you participate in: none leonarda/sikh: Evangelical seatbelt use: always do you feel safe at home: Yes additional social history: FOB- Inocente Eng History 1 Elective abortions Hx Para 0 Spontaneous abortions Hx # Term Pregnancies Ectopic pregnancies Hx # Pregnancies Multiple births # of living children Visit Details OB Flowsheet Initial Weight: Not Recorded Date <del>?</del> EGA Weight BP Urine Prot <del>?</del> Glucose FHR FuHt Pres Dilation <del>?</del> Effaced St Visit Note 01/04/22 <del>?</del> 29w 4d 159 lb 4 oz 124/79 124/79 Negative <del>?</del> Negative <del>?</del> SHAYY venegas is transferring care to us. She had an anatomy ultrasound and labs minus a genetic screen that she declined. SHAYY venegas is transferring care to us from [facility] because she only wants a female provider. She had an anatomy ultrasound and labs minus a genetic screen that she declined. she states that [facility] was doing scans on her every visit due to low fluid and small kidney. Records are pending. Consulting [facility]. iron rx given for hg 9.9 01/18/22 <del>?</del> 31w 4d 158 lb 4 oz 126/87 Negative <del>?</del> Negative <del>?</del> SHAYY was at [facility] for threatened PTL from 01/07- 01/10. She recieved mag and celestone x 2. She was also given vistaril. She was never found to be dilated, only 50% effaced. ultrasounds there did not show the small kidneys or oligo. She also had a renal ultrasound due to persistent renal colic from a kidney infection in October. 02/01/22 <del>?</del> 33w 4d 162 lb 4 oz 118/64 Negative <del>?</del> Negative 151 32 <del>?</del> -No VB, LOF. Irreg CTX. Good FM. 02/13/22 <del>?</del> 35w 2d 165 lb 4 oz 116/74 Negative <del>?</del> Negative <del>?</del> -arrived at 1550 stating leaking fluid X 3-4 days and dec movement today. To WP for eval. ROS Constitutional Constitutional: Reports systems reviewed and no addt'l complaints, except as documented Gastrointestinal Gastrointestinal: Denies bloating, constipation, cramping, diarrhea, nausea or vomiting Genitourinary Genitourinary: Reports other Details: Denies vaginal odor, vaginal bleeding, or vaginal discharge ; Denies difficulty urinating or flank pain Physical Exam HEENT normocephalic Resp normal respiratory effort and normal air movement no CVA tenderness Extremity normal to inspection General Extremity: edema bilateral (trace ) NST FHR Rate Baby A Baseline: 140 Variability:: Moderate Accelerations:: 15 x 15 Decelerations:: None NST Reactive:: Yes FHR Category:: Category I Assessment & Plan (1) Mild pre-eclampsia: COMMENT: plan for close follow up in office. twice weekly nsts and rpt labs weekly. deliver at 37 weeks if proteinuria still elevated. suspect viral illness- rapid covid and flu pending. recommend starting tylenol and rest/hydration at home. pre-e precautions discussed. pt reassured that she does not have pitting or significant edema and only mildly elevated pro:cr with all normal to low blood pressures. she has a growth scan with [facility] tomorrow that will be helpful PLAN: plan for close follow up in office. twice weekly nsts and rpt labs weekly. deliver at 37 weeks if proteinuria still elevated. suspect viral illness- rapid covid and flu pending. recommend starting tylenol and rest/hydration at home. pre-e precautions discussed. pt reassured that she does not have pitting or significant edema and only mildly elevated pro:cr with all normal to low blood pressures. she has a growth scan with [facility] tomorrow that will be helpful (2) Abnormal drug screen: COMMENT: + cannabinoid result, random tox screen (3) History of suicide attempt: COMMENT: in 2019 took 20 tylenol then went to ER. followed by social science teacher. (4) Oligohydramnios: COMMENT: on records from [facility] consult ordered:US with [facility] 02/15/22 (5) Anemia: COMMENT: starting integra 01/04/22: did not start until 01/23, rpt cbc in 4 weeks. (6) Supervision of normal first : COMMENT: , VIMAL 03/13/22, Boy/Luke FOB Inocente (7) Right flank pain: COMMENT: was hospitalized 12/29 (8) Hx: UTI (urinary tract infection): COMMENT: 1 in past 4 months; 12/28/21 neg culture (9) : QUALIFIERS: Weeks of gestation: 31 weeks Qualified Code(s): Z3A.31 - 31 weeks gestation of COMMENT: Did not do genetic or carrying testing. Anatomy US NL Charges/Coding Multi Select Codes Visit Charges Office Visit/Consults: 73041 OV L3 Est Urinary/Genital Urinary/Genital CPT Codes: 63397-69 non-stress test Interp
== END 2022-02-14 15:40 | disposition home or self-care (01) ==
LOC: WPOUT 12:15 → WP 12:15
PROVIDERS: PCP Family Medicine; Visit Provider Obstetrics & Gynecology
DX: O14.03 Mild to moderate pre-eclampsia, third trimester (principal); O99.013 Anemia complicating pregnancy, third trimester; O41.03X0 Oligohydramnios, third trimester, not applicable or unspecified; Z3A.37 37 weeks gestation of pregnancy
CPT/HCPCS: 36415; 59025; 59050; 71046; 82565; 82570; 84156; 84450; 84460; 84550; 85027; 87428; 99218; G0378

== ENCOUNTER 2022-02-16 12:10 | Outpatient (CLI) | payer MEDICAID, SELFPAY ==
[2022-02-16] VITALS (10 sets, daily range): BP systolic 98–128; BP diastolic 59–77; PULSE 97–134; TEMP 36.9; O2SAT 97–100; BMI 29.9
[2022-02-16 13:07] LABS: Protein, Urine (Random) 20.4 mg/dL (<11.9); Protein:Creat Ratio 150 mg/g CRE (0-200)
[2022-02-16 13:59] LABS: Protein, Urine (Random) 17.4 mg/dL (<11.9); Protein:Creat Ratio 191 mg/g CRE (0-200)
[2022-02-16 14:30] LABS: ROM Internal Control Test YES-OK TO RESULT pt. (Internal QC); ROM Patient Test Negative (Negative)
--- NOTE | 2022-02-16 15:16 | NURSING ---
1415: Called [place]'s office and notified that pt declines IV and labwork d/t only having transportation if she leaves now. This nurse explained the importance of getting labs drawn and IV fluids to hydrate to stop CTX. Pt still states to decline the IV and labs and to go home. stating she can be discharged now but still wants pt to do the 24 hour urine. Pt agrees with this plan.
--- NOTE | 2022-02-22 02:00 | OB.TRI.PN_ITS ---
Progress Notes Date of Service: 02/16/22 Progress Note: Patient presents for triage evaluation secondary to possible ROM FHT: 140 Moderate variability reactive no decelerations category I tracing [place]: no regular Contractions Assessment and plan: possible ROM, headache, negative urine protein normal bps, patient declined preeclampsia labs, previously normal several days ago, Reactive NST, reassuring maternal and status patient discharged to home to follow- up as scheduled. See problem list details for additional plan information. Laboratory Studies: Laboratory Tests 02/16/22 02/16/22 02/16/22 Range/Units 14:00 13:40 12:45 U Random Total Protein 17.4 H 20.4 H (<11.9) mg/dL Urine Creatinine 91.30 136.00 (NO RANGE EST.) mg/dL Protein/Creatinin Ratio 191 150 (0-200) mg/g CRE Vag Amniotic Fld Detect Negative (Negative) Charges/Coding Procedures Urinary/Genital 52xxx-59xxx: [id number] non-stress test Interp
== END 2022-02-16 14:45 | disposition home or self-care (01) ==
LOC: WP 12:16 → WPOUT 12:16
PROVIDERS: Obstetrics & Gynecology; PCP Family Medicine; Referring Provider Obstetrics & Gynecology; Visit Provider Obstetrics & Gynecology
DX: Z00.00 Encounter for general adult medical examination without abnormal findings (principal)
CPT/HCPCS: 59050; G0378 ×2; 59025; 82570; 84156; 84112; 99218

== ENCOUNTER 2022-02-18 09:25 | Inpatient (IN) | payer MEDICAID, SELFPAY ==
[2022-02-18] VITALS (73 sets, daily range): BP systolic 103–147; BP diastolic 51–91; PULSE 86–126; RESP 14–18; TEMP 36.3–37.4; O2SAT 96–99; BMI 29.5
--- NOTE | 2022-02-18 05:17 | HP.PCM.OB_ITS ---
HPI - General HPI Narrative PARVEEN BROTHERS, is a 21 F who presents with elevated bps and RUQ pain- she has had intermittent visual changes this week but had normal bps and varying levels of protein in her urine. she was supposed to complete a 24 hour urine this week but didn't. she presents this morning with increasing RUQ pain and borderline pressures. Maternal Data Information VIMAL Calculator Estimated Delivery Date Method Current WG Current Estimate 03/18/22 LMP (Certain) 36w 0d PFSH PFSH Medical History (Updated 02/18/22 @ 05:[address] Opal Horvath MD) Anxiety Asthma Pre-eclampsia Home Medications ondansetron 4 mg disintegrating tablet 4 mg PO Q8H PRN PRN Nausea #10 tabs 01/09/21 [Rx Last Taken 12/28/21 08:00 4 mg] vit with calcium-iron fum-folic acid 60 mg iron-1 mg tablet 1 tab PO DAILY 12/16/21 [History Last Taken 12/28/21 08:00 1 tab] Allergy/AdvReac Type Severity Reaction Status Date / Time No Known Allergies Allergy Verified 02/16/22 11:28 Surgical History (Updated 02/18/22 @ 05:16 by Brielle Nicholas) [place] teeth extracted Social History adopted: No household members: family housing: house current occupational status: unemployed pets and animals: Yes pets and animals: dog(s) history of recent travel: No sexually active: Yes Smoking Status: Former smoker alcohol intake: never substance use type: does not use well-balanced diet: daily or most days caffeine: Yes Type: coffee Number of servings: 1 eating out: rarely or never during the past year weight has: increased > 10 lbs what type of physical activity do you participate in: none leonarda/jain: Adventist seatbelt use: always do you feel safe at home: Yes additional social history: FOB- Inocente Eng History 1 Elective abortions Hx Para 0 Spontaneous abortions Hx # Term Pregnancies Ectopic pregnancies Hx # Pregnancies Multiple births # of living children Visit Details OB Flowsheet Initial Weight: Not Recorded Date -?-?-?-?-?-?-?-?-?-?-?-?- EGA Weight BP Urine Prot -?-?-?-?-?-?-?--?-?-?-?-?- Glucose FHR FuHt Pres Dilation -?-?-?-?-?-?-?-?-?-?-?-?- Effaced St Visit Note 01/04/22 -?-?-?-?-?-?-?-?-?-?-?-?- 29w 4d 159 lb 4 oz 124/79 124/79 Negative -?-?-?-?-?-?-?-?-?-?-?-?- Negative -?-?-?-?-?-?-?-?-?-?-?-?- SHAYY venegsa is transf erring care to us. She had an anatomy ultrasound and labs minus a genetic screen that she declined. SHAYY venegas is transferring care to us from [facility] because she only wants a female provider. She had an anatomy ultrasound and labs minus a genetic screen that she declined. she states that [facility] was doing scans on her every visit due to low fluid and small kidney. Records are pending. Consulting [facility] [place]. iron rx given for hg 9.9 01/18/22 -?-?-?-?-?-?-?-?-?-?-?-?- 31w 4d 158 lb 4 oz 126/87 Nega tive -?-?-?-?-?-?-?-?-?-?-?-?- Negative -?-?-?-?-?-?-?-?-?-?-?-?- SHAYY was at the [facility] for threatened PTL from 01/07- 01/10. She recieved mag and celestone x 2. She was also given vistaril. She was never found to be dilated, only 50% effaced. ultrasounds there did not show the small kidneys or oligo. She also had a renal ultrasound due to persistent renal colic from a kidney infection in October. 02/01/22 -?-?-?-?-?-?-?-?-?-?-?-?- 33w 4d 162 lb 4 oz 118/64 Nega tive -?-?-?-?-?-?-?-?-?-?-?-?- Negative 151 32 -?-?-?-?-?-?-?-?-?-?-?-?- MH-No VB, LOF. I rreg CTX. Good FM. 02/13/22 -?-?-?-?-?-?-?-?-?-?-?-?- 35w 2d 165 lb 4 oz 116/74 Nega tive -?-?-?-?-?-?-?-?-?-?-?-?- Negative -?-?-?-?-?-?-?-?-?-?-?-?- -arrived at 15 50 stating leaking fluid X 3-4 days and dec movement today. To for eval. 02/18/22 -?-?-?-?-?-?-?-?-?-?-?-?- 36w 0d 161 lb 8 oz 140/77 140/73 135/80 147/91 137/84 120/72 120/76 119/69 119/69 146/91 146/91 -?-?-?-?-?-?-?-?-?-?-?-?- -?-?-?-?-?-?-?-?-?-?-?-?- NST FHR Rate Baby A Baseline: 130 Variability:: Moderate Accelerations:: 15 x 15 Decelerations:: None NST Reactive:: Yes FHR Category:: Category I Uterine Activity:: irregular ROS Constitutional Constitutional: Reports systems reviewed and no addt'l complaints, except as documented Eyes Eyes: Denies change in vision ENT HEENT: Reports systems reviewed and no addt'l complaints, except as documented; Denies headache(s) Cardiovascular Cardiovascular: Reports systems reviewed and no addt'l complaints, except as documented; Denies chest pain or dyspnea Respiratory/Chest Respiratory/Chest: Reports systems reviewed and no addt'l complaints, except as documented Gastrointestinal Gastrointestinal: Reports systems reviewed and no addt'l complaints, except as documented and abdominal pain Genitourinary Genitourinary: Reports systems reviewed and no addt'l complaints, except as documented, contractions Details: present (irregular) and movement Details: present; Denies dysuria or genital lesions Musculoskeletal Musculoskeletal: Reports systems reviewed and no addt'l complaints, except as documented Neurologic Neurologic: Reports systems reviewed and no addt'l complaints, except as documented Endocrine Endocrinology: Reports systems reviewed and no addt'l complaints, except as documented Vital Signs Vital Signs Vital Signs: 02/18/22 04:37 02/18/22 04:37 02/18/22 04:37 Temperature Temperature Source Pulse Rate 109 H Blood Pressure 140/77 H BP Systolic 140 BP Diastolic 77 Pulse Ox 98 02/18/22 04:37 02/18/22 04:37 02/18/22 04:44 Temperature 97.8 F Temperature Source Temporal Pulse Rate Blood Pressure 140/73 H BP Systolic 140 BP Diastolic 73 Pulse Ox 02/18/22 04:44 02/18/22 04:54 02/18/22 04:54 Temperature Temperature Source Pulse Rate 111 H 106 H Blood Pressure 135/80 H BP Systolic 135 BP Diastolic 80 Pulse Ox 02/18/22 05:07 02/18/22 05:07 Temperature Temperature Source Pulse Rate 116 H Blood Pressure 147/91 H BP Systolic 147 BP Diastolic 91 Pulse Ox Weight Weight: 161 lb 8 oz Body Mass Index (BMI) 29.5 Physical Exam Const alert, oriented x3, no apparent distress and healthy appearing HEENT normocephalic and moist oral mucous membranes Head and Scalp: atraumatic Neck full ROM, no lymphadenopathy, supple and thyroid normal General: trachea midline Lymph Lymphatic: no lymphadenopathy noted Chest inspection of chest normal Resp normal respiratory effort Cardio regular rate GI normal to inspection, nondistended, normoactive bowel sounds, soft to palpation and non-tender Inspection: gravid external exam normal Manual OB Exam: estimated gestational size appropriate, presentation cephalic, dilated, effaced and station Extremity normal to inspection General Extremity: Negative for edema Skin no rashes or lesions noted Neuro no focal motor deficits and deep tendon reflexes 2+ bilaterally Motor Exam: strength 5/5 throughout and clonus absent Psych mental status grossly normal Labs Labs Labs: Blood Type A POSITIVE Antibody Screen NEGATIVE Hct 33.3 % (37-47) L Hgb 11.1 g/dL (12.0-15.0) L Syphilis Total Ab Non-reactive Rubella IgG Antibody Reactive (Nonreactive) Hep Bs Antigen Non-Reactive (Nonreactive) Chlamydia DNA (ALFREDO) Negative (Negative) Neisseria gonorrhoeae DNA (ALFREDO) Negative (Negative) HIV 1&2 Antibody Non-Reactive (Nonreactive) Glucose 1 Hr 50 gm 126 mg/dL (70-140) Group B Strep DNA Negative (Negative) Assessment & Plan (1) Supervision of normal first : COMMENT: , VIMAL 03/13/22, Boy/Chong Brower (2) Abnormal drug screen: COMMENT: + cannabinoid result, random tox screen (3) RUQ pain: (4) Preeclampsia, severe: COMMENT: elevated bps with ruq pain and visual changes- will admit and induce due to already receiving steroids and after 34 weeks. proceed with delivery. PLAN: Plan admit for monitoring, labs drawn and follow bps, reevaluate for delivery or exp management.
[2022-02-18 05:32] LABS: Absolute Lymphocyte Count 2.62 X10^3/uL (0.83-4.51); Absolute Neutrophil Count 9.1 X10^3/uL (2.0-7.7); Basophil# 0.03 X10^3/uL; Basophil% 0.2 % (0-1); Eosinophil# 0.04 X10^3/uL; Eosinophils% 0.3 % (0-5); Hematocrit 33.3 % (37-47); Hemoglobin 11.1 g/dL (12.0-15.0); Lymphocyte # 2.62 X10^3/ul (0.83-4.51); Lymphocyte % 20.7 % (19-41); Mean Corp Hgb Conc 33.3 g/dL (32-36); Mean Corpuscular Hgb 30.6 pg (27.0-32.0); Mean Corpuscular Volume 91.7 fL (81-99); Mean Platelet Vol. 10.8 fl (6.2-12.0); Monocyte# 0.77 X10^3/uL; Monocyte% 6.1 % (0-10); NRBC Flagged by Analyzer 0 % (0-5); Neutrophil # 9.09 X10^3/uL (2.7-7.7); Neutrophil % 71.8 % (47-70); POSITIVE COUNT YES; RBC Distribution Width CV 13.6 % (11.6-14.6); RBC Distribution Width SD 45.9 fl (35.1-43.9); Red Blood Count 3.63 M/mm3 (4.2-5.4); White Blood Count 12.7 K/mm3 (4.4-11.0)
[2022-02-18 05:35] LABS: Differential Indicated SCAN CRITERIA MET
[2022-02-18] MEDS: Lactated Ringers 1,000 ML 15 ML IV (05:35)
[2022-02-18] MEDS: Magnesium Sulfate 4gm/100mL 4 GM/100 ML IV.SOLN. IV (05:40)
[2022-02-18 05:45] LABS: AST(SGOT) 12 U/L (15-37); Alanine Aminotransfer ALT/SGPT 13 U/L (13-56); Creatinine, Serum 0.36 mg/dL (0.55-1.02); EST Glomerular Filtration Rate 243 mL/min (>60); Est Glom Filt Rate - Afr Amer 294 mL/min (>60); Estimated Creatinine Clearance 197.15 ml/min; Uric Acid 2.5 mg/dL (2.6-6.0)
[2022-02-18 05:52] LABS: Amphetamine Urine VISTA NEGATIVE (<1000 ng/mL); Barbiturate Urine VISTA NEGATIVE (< 200 ng/mL); Benzodiazepine Urine VISTA NEGATIVE (< 200 ng/mL); Cocaine Urine VISTA NEGATIVE (< 300 ng/mL); Ecstacy Urine VISTA NEGATIVE (< 500 ng/mL); Methadone Urine VISTA NEGATIVE (< 300 ng/mL); PCP Urine VISTA NEGATIVE (< 25 ng/mL); THC Urine VISTA POSITIVE (< 50 ng/mL); Vista UDS pH Range 5
[2022-02-18 05:53] LABS: Protein, Urine (Random) 41.3 mg/dL (<11.9); Protein:Creat Ratio 210 mg/g CRE (0-200)
[2022-02-18] MEDS: Magnesium Sulfate 20 GM/500 ML BAG IV (06:03)
--- NOTE | 2022-02-18 06:29 | NURSING ---
magnesium restarted at this time per telephone order by Dr. Nieto, magnesium rate verified at 2g/hr with Serina Tavera RN at this time
[2022-02-18 06:31] LABS: Group B Strep DNA By PCR Negative (Negative); Internal Control PASS; Probe Check PASS; Specimen Processing Control PASS
--- NOTE | 2022-02-18 06:32 | CT_ITS ---
STUDY: CT BRAIN WITH AND WITHOUT CONTRAST REASON FOR EXAM: Female, 21 years old. headache RADIATION DOSAGE (If Supplied By Facility): CTDIvol = ( 44.99 ) mGy, DLP = ( 1479.73 ) mGycm TECHNIQUE: Transaxial CT imaging of the brain was performed pre and post contrast administration. The examination was performed with intravenous administration of 50CC ISOVUE 370. Individualized dose optimization techniques were used for this CT. COMPARISON: 01/20/2018 FINDINGS: Normal soft tissue structures. Normal calvarium. Normal size ventricles and extra-axial spaces for the patient''s age. Normal white matter tracts of the cerebral hemispheres. Normal basal ganglia and thalami. Normal brainstem. Normal cerebellum. There is no intracranial hemorrhage. There are no findings of an acute ischemic infarction. Normal visualized paranasal sinuses. CT/Brain/Head W/WO Contrast IMPRESSION: Normal unenhanced and enhanced CT scan of the brain. Electronically Signed: Kaleb Chávez MD at 8:45 EST ,
--- NOTE | 2022-02-18 06:32 | US_ITS ---
STUDY: ABDOMINAL ULTRASOUND - RIGHT UPPER QUADRANT REASON FOR VISIT: Female, 21 years old RUQ pain TECHNIQUE: Ultrasound evaluation of the right upper quadrant was performed with real-time and static kelsey-scale imaging. TECHNICAL QUALITY: Adequate. COMPARISON: None. FINDINGS: Liver: The liver measures 15.8 cm. There is normal echogenicity of the liver. The bile ducts are within normal limits. There is hepatic color flow. The direction of portal flow is hepatopetal. There is no demonstrated mass lesion. Gallbladder: Normal distended gallbladder. The gallbladder wall measures 2 mm. There is a negative sonographic Card''s sign. There is no pericholecystic fluid. There are no gallstones. Common Bile Duct (C.B.D.): The common bile duct measures 2 mm. Pancreas: Normal size of the head, body and tail of the pancreas. There is normal echogenicity of the pancreas. There is no demonstrated pancreatic mass or cyst. Right Kidney: Normal size of the right kidney. The right kidney measures 12.4 cm. Normal renal cortex. The right cortex measures 1.1 cm. There is no demonstrated renal mass or cyst. There is moderate hydronephrosis of the right kidney. US/Abdomen Limited IMPRESSION: Normal right upper quadrant ultrasound examination. Moderate right hydronephrosis of . Electronically Signed: Kaleb Chávez MD at 9:47 EST ,
[2022-02-18 06:48] LABS: Differential Comment SCANNED
[2022-02-18 06:50] LABS: Platelet Estimate ADEQUATE (ADEQ)
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
[2022-02-18] MEDS: miSOPROStol 50 MCG TABLET PO (09:36)
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
--- NOTE | 2022-02-18 15:50 | PN_ITS ---
Progress Note pt is sitting up in bed. She states that the contractions are like cramps. no other complaints current tracing: FHT: 130 Moderate variability reactive occasional late decelerations category II tracing [place]: starting to have regular Contractions now q2-3 min cx: 2/80/-1, membranes ruptured with clear fluid return reviewed tracing abnormalities since last note: improved variabilty A/P: 36 weeks with pre-eclampsia -bp's well controlled s/p cytotec 50 mcg, start pitocin now epidural prn.
[2022-02-18] MEDS: Oxytocin 15 Units/NS 250ml 15 UNITS/250 ML IV.SOLN 2 UNITS IV (15:54)
[2022-02-18] MEDS: LACTATED RINGERS 500 ML 999 ML IV (16:32)
[2022-02-18] MEDS: fentaNYL-bupivacaine (epidural) 100 ML BAG EPIDURAL ×2 (17:53→21:47)
--- NOTE | 2022-02-18 19:28 | PN_ITS ---
Progress Note pt is resting with epidural in place. no complaints. current tracing: FHT: 130's Moderate variability reactive no decelerations category I tracing [place]: q2 min Contractions cx: /0 (nurse report) reviewed tracing abnormalities since last note: stable A/P: gbs still pending, will start pcn. continue pitocin.
[2022-02-18] MEDS: Lactated Ringers 1,000 ML 200 ML IV (19:43)
[2022-02-18] MEDS: Ondansetron 4 MG/2 ML Vial IV ×2 (19:49→23:52)
[2022-02-18] MEDS: Penicillin G 3,000,000 Units 50 ML 100 UNITS IV (23:43)
[2022-02-19] VITALS (21 sets, daily range): BP systolic 92–147; BP diastolic 53–84; PULSE 68–149; RESP 16–18; TEMP 36.1–37.6; O2SAT 93–98
[2022-02-19] MEDS: Oxytocin 10 UNITS/ML Vial IM (03:14)
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
--- NOTE | 2022-02-19 03:29 | DCINST_ITS ---
Discharge Instructions Diet Discharge Diet: No restrictions Activity Discharge Activity: Return to Normal Activity, May Not Drive (while taking narcotic pain medications.) and May Shower May resume sexual activity in: 4-6 weeks Dressing / Incision Call your doctor if your incision/area has: Continuous Slow Oozing, Sudden Increased Bleeding, Increased Pain/ Swelling, Increased Redness and Foul Smelling Discharge Follow Up Care Please Follow Up With: Leandra Tobin, DO When: Call [phone] to make an appointment with your doctor in 6 weeks. If you had elevated blood pressure or 4th degree laceration, you will need to be seen in 2 weeks. Test Results: Test results from this visit will be discussed in further detail at your follow- up appointment, if applicable. Discharge Plan Admission Admit Date/Time: 02/18/22 09:25 Attending Provider: Leandra Tobin Primary Care Provider: Rogelio Mathis Discharge Orders/Prescriptions Prescriptions: No Action ondansetron [ondansetron] 4 MG tablet 4 mg PO Q8H PRN PRN (Reason: Nausea) Qty: 10 0RF Fa 60 mg iron-1 mg Tablet 1 tab PO DAILY Referrals / Follow Up: Rogelio Mathis MD [Primary Care Provider] -
[2022-02-19] MEDS: Naproxen 500 MG Tablet PO ×2 (06:13→15:28)
--- NOTE | 2022-02-19 07:28 | NURSING ---
During labor and delivery, pt requesting to have sheet over legs during pushing so that FOB and pt would not see anything with delivery. Pt yelling at FOB to not look during pushing and instructing FOB to have his back to pt and look at the wall. During pushing and delivery, pt put a washcloth over entire face. After delivery and baby getting transferred to [facility], pt very emotional and having a hard time coping with baby being transferred. Patient acting emotionally unstable with poor coping mechanisms throughout labor and delivery. This nurse gave reassurance to mother.
[2022-02-19] MEDS: Acetaminophen 500 MG Tablet 1000 MG PO ×2 (07:56→17:44)
--- NOTE | 2022-02-19 10:55 | NURSING ---
Pt voided in shower in squatting position d/t perineal pain and pt preference, pt was able to void and empty bladder completely. First void completed.
[2022-02-19] MEDS: Benzocaine/Lanolin/Aloe Vera 1 SPRAY EACH TOPICAL (11:21)
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
--- NOTE | 2022-02-19 18:21 | NURSING ---
Pt no longer pumping and voiced to special care nursery that she would like to bottle feed. Pt states she does not like pumping because it makes her have abdominal cramping.
[2022-02-20] MEDS: Naproxen 500 MG Tablet PO ×2 (01:45→13:05)
[2022-02-20 03:08] VITALS: BP 116/57; PULSE 86; RESP 16; TEMP 36.2; O2SAT 96
[2022-02-20] MEDS: Acetaminophen 500 MG Tablet 1000 MG PO ×2 (03:14→13:04)
[2022-02-20] MEDS: oxyCODONE 5 MG Tablet PO ×3 (03:18→14:32)
[2022-02-20 07:16] VITALS: BP 112/67; PULSE 87; RESP 16; TEMP 36; O2SAT 96
--- NOTE | 2022-02-20 08:25 | PCM.PN.OB ---
Subjective Subjective Patient doing well without complaints. Tolerating PO. Ambulating and voiding without difficulty. Feeding well. Denies chest pain, shortness of breath, calf pain/swelling, fevers, chills, lightheadedness. Objective Data Objective Data Vital Signs: Vital Signs Temp Pulse Resp BP Pulse Ox O2 Del Method 96.8 F L 87 16 112/67 96 Room Air 02/20/22 07:16 02/20/22 07:16 02/20/22 07:16 02/20/22 07:16 02/20/22 07:16 02/20/22 07:16 Oxygen Delivery Method Room Air Weight: 161 lb 8 oz Body Mass Index (BMI) 29.5 Intake & Output: Intake and Output for Last 24 Hours 02/18/22 02/19/22 02/20/22 23:59 23:59 23:59 Intake Total 1902.70 / 1902.70 1079.7 / 1079.7 Output Total 150 / 150 Balance 1752.70 / 1752.70 1079.7 / 1079.7 Lab / Micro Data Attestation: I reviewed the patient's lab results. Result Diagrams: 02/18/22 05:20 02/18/22 05:20 Physical Exam Const alert, oriented x3 and no apparent distress Neck full ROM Chest inspection of chest normal Resp normal respiratory effort and normal air movement GI GI Narrative: fundus firm 1 below u, mild lochia, no clots Extremity normal to inspection and full ROM Skin no rashes or lesions noted Skin Narrative: perineum well approximated Neuro oriented x3 Assessment & Plan (1) Status post vaginal delivery: COMMENT: bb boy luanibal 02/19/22- JV (2) Preeclampsia, severe: COMMENT: BP stable PLAN: Plan s/p PPD # 2 1. routine post delivery care 2. breast feeding- support given 3. rh positive 4. rubella immune 5. d/c home today
--- NOTE | 2022-02-20 13:08 | NURSING ---
pt spending most of her time in the [facility] with
[2022-02-20 14:00] VITALS: BP 112/71; PULSE 83; RESP 16; TEMP 36.1
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
--- NOTE | 2022-02-20 14:54 | NURSING ---
ganesh notified in office that pt is requesting a prescription for oxycodone and a cough syrup
[2022-02-20] MEDS: guaiFENesin 10 ML UDC (200MG/10ML) PO (18:00)
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
--- NOTE | 2022-02-24 19:00 | CASEMGMT ---
Addendum entered and electronically signed by Yokasta Blount 02/27/22 11:01: Clarification - error, MOB discharged on 02.20.2022 as a patient, note 02.21.2022. Assessment occurred on . la Original Note: Social Work Labor and Delivery Date of Intervention: 02.24.2022 Time of intervention: 1640; 1814 - 1844 Summary: Patient/mother of baby (MOB) has been discharged as a patient from [facility] as of 02.21.2022. However, as follow up to discussion with MOB during social work assessment on 02.21.2022 this automobile and property underwriter did meet with MOB and father of baby (FOB) Inocente Eng this date, 02.24.2022. While baby is in the SCN, the MOB continues to use a courtesy room on the labor and delivery unit at [facility]. 1640 - Met with MOB at baby's bedside in the SCN. ?Touched base on how MOB is feeling. ?MOB reports to be feeling better, both physically and emotionally. ?MOB reports the visit with children services went well, that CSB swabbed MOB for drug test, and knows will be getting another test soon. ?MOB reports the worker from [facility] was nice and feeling less anxious after meeting. ??MOB reports still wanting this social sciences instructor to go over PPD with herself and FOB. ?MOB agreed to have FOB come in earlier than planned so social sciences instructor can meet. ?MOB still requesting social sciences instructor to present information as new to both MOB and FOB. ??This automobile and property underwriter did address with MOB the condition of courtesy room, as the hospital community relations representative talked to this automobile and property underwriter that room was in disrepair, very messy with old food and even pads on the floor. ?Talked with MOB as to whether MOB is doing okay, as it was mentioned MOB's room needed some cleaning. 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 ??Let MOB know need to keep up on picking up the room. ? [id number]: ?Met with MOB and FOB at bedside. ?Introduced to self, role as [facility] social sciences instructor and [facility] social sciences instructor. Educated to need to go over resources and educate to depression and anxiety. ?MOB and FOB both expressed agreement with social sciences instructor visit. ?Educated to some community resources including [employer] [facility]. MOB in agreement and FOB asked if he could also be added to the referral, as would like to be a contact. ?FOB provided his phone number as [phone]. 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 ?FOB reports working now so can take off when baby goes home. ?FOB reports to be excited for the baby. ?Educated MOB and FOB to mood and anxiety disorders. ?Educated to risk factors, and that MOB has risk present. ?Discussed with FOB, that as a partner it will be important to be supportive, check in on MOB, and that FOB cannot fix it for MOB. Educated both that PPD/PPA is not a fault, that the mother has done nothing wrong, but needs support and treatment. ?MOB admits to having periodic depression through the years, and has wanted counseling. ?FOB expressed that would keep an eye on MOB. ?Educated that fathers can also experience depression, and that it is important for fathers to also seek self care and even counseling when needed. ??FOB reports to have coping by work and having employees he can talk to. ?MOB reports to cope by spending time with mother and stepfather. ??MOB expressed thought that should do some counseling together. ?FOB remained quiet when MOB voiced she wanted to do counseling, but when voiced the thought that should do together the FOB voiced this would be good. ??FOB voiced agreement to tele health, that if a counseling could come to MOB to the home then FOB could be on the phone for part or most of the time when counselor is at the home. MOB also expressed interest in home counseling. ??Educated that [facility] in [place] sometimes provides in home counseling, but that would have to go to office for at least the first visit. ?Educated that [facility] in [place] has been known to provide tele health. ?MOB voiced that [facility], but due to various reason was not able to go. ??Offered parents opportunity to ask questions. ?Offered emotional support. ??FOB did step out of the curtain at one point to show nursing the baby's bottle. MOB gave this automobile and property underwriter a thumbs up that conversation has gone well. ?? Assessment:?MOB cooperative, pleasant, tried appearing but attentive to baby both visits today. ??MOB appearing more quiet when FOB present, but did voice interest in counseling and suggested that FOB also participate. ??FOB was pleasant and cooperative, appearing to want to be equal parts of conversation. ?Such as when HMG was discussed, FOB immediately asked for himself to be part of referral. ?FOB quiet when MOB voiced interest in own counseling, but more communicative when MOB included FOB and FOB agreed would like to be part of counseling on the phone, so appearing more receptive to MOB's counseling if FOB is also included.?MOB asked if this automobile and property underwriter could help with set up of counseling, as this would be one less thing for MOB to have to do and remember. ?This automobile and property underwriter agreed to assist MOB. ??Provided parents with resources lists for [facility], counseling resources, and packet on PPD/PPA. ??FOB thanked this automobile and property underwriter for information. Note, MOB was feeding baby during social work visit, giving FOB the bottle to hold when MOB would burp the baby. ?FOB would sometimes reach over and touch baby's face. ???This automobile and property underwriter offered much encouragement to MOB, and voiced to MOB that MOB is doing a good job right now taking care of her baby. ?When compliment offered to MOB, the FOB looked at this automobile and property underwriter, smiled and said thank you. ?? Plan: YURIY has been discharged as a patient, but now requesting assistance with counseling referral. HMG referral being made. [facility] is involved. -ANKIT Mason, JESSICA ?
--- NOTE | 2022-03-04 17:07 | CASEMGMT ---
SW received letter from [facility] stating that case has been opened for intake investigation. Assigned worker is Guanakito Eubanks and fiber locking supervisor is Ruy Elmore. Michaela PHAM
== END 2022-02-20 18:04 | disposition home or self-care (01) | DRG 560 ==
LOC: WPOUT 09:38 → WP 09:38
PROVIDERS: Obstetrics & Gynecology; Admitting Provider Obstetrics & Gynecology; PCP Family Medicine; Visit Provider Obstetrics & Gynecology
DX: O14.14 Severe pre-eclampsia complicating childbirth (principal); Z37.0 Single live birth; O69.81X0 Labor and delivery complicated by cord around neck, without compression, not applicable or unspecified; Z3A.36 36 weeks gestation of pregnancy; O70.0 First degree perineal laceration during delivery; Z87.891 Personal history of nicotine dependence; Z87.440 Personal history of urinary (tract) infections; R89.2 Abnormal level of other drugs, medicaments and biological substances in specimens from other organs, systems and tissues
CPT/HCPCS: 59025; 59050; 70470; 76705; 80307; 82565; 82570; 84112; 84156; 84450; 84460; 84550; 85025; 86850; 86900; 86901; 87081; 87653; 99218; J7120; Q9967; A4216; G0378; J2405

== ENCOUNTER 2022-04-17 20:53 | Emergency (ER) | payer MEDICAID, SELFPAY ==
[2022-04-17 20:54] VITALS: BP 125/80; PULSE 94; RESP 15; TEMP 36.4; O2SAT 98; BMI 21.7
--- NOTE | 2022-04-17 22:06 | EX.ED.VIS.PS ---
HPI <LUCINA Jenkins - Last Filed: 04/17/22 23:11> HPI - Psych History of Present Illness Chief Complaint: Mental Health Narrative Narrative: Patient presents today with her boyfriend for depression that she has been experiencing for the two months since having her baby as well as self-harm. Patient states that she has been cutting her arms and her legs over the past few days but refuses to show anybody her legs. She has never self-harmed before and states she is doing it to help relieve stress. Patient states that she has a history of depression and anxiety that only got worse while she was . Patient states she is currently on medication for depression, however, it is not working. She denies suicidal thoughts, suicidal ideations, and homicidal ideations. PFSH <LUCINA Jenkins - Last Filed: 04/17/22 23:11> PFSH Medical History Anxiety Asthma Pre-eclampsia Home Medications ondansetron 4 mg disintegrating tablet 4 mg PO Q8H PRN PRN Nausea #10 tabs 01/09/21 [Rx Last Taken 12/28/21 08:00 4 mg] vit with calcium-iron fum-folic acid 60 mg iron-1 mg tablet 1 tab PO DAILY 12/16/21 [History Last Taken 12/28/21 08:00 1 tab] fluoxetine 20 mg capsule (Prozac) 20 mg PO DAILY #30 caps 03/20/22 [Rx Last Taken Unknown] levonorgestrel 1.5 mg tablet (Plan B One-Step) 1.5 mg PO ONCE #1 TAB 03/22/22 [Rx Last Taken Unknown] hydroxyzine pamoate 50 mg capsule 50 mg PO Q6H PRN PRN Anxiety 04/17/22 [History Last Taken Unknown] Allergy/AdvReac Type Severity Reaction Status Date / Time No Known Allergies Allergy Verified 04/17/22 20:56 Surgical History [place] teeth extracted Social History adopted: No household members: family housing: house current occupational status: unemployed pets and animals: Yes pets and animals: dog(s) history of recent travel: No sexually active: Yes Smoking Status: Current every day smoker tobacco type: e-cigarettes alcohol intake: never substance use type: does not use well-balanced diet: daily or most days caffeine: Yes Type: coffee Number of servings: 1 eating out: rarely or never during the past year weight has: increased > 10 lbs what type of physical activity do you participate in: none leonarda/cheondoism: Nondenominational seatbelt use: always do you feel safe at home: Yes additional social history: MORALES RODRIGUEZ <LUCINA Jenikns - Last Filed: 04/17/22 23:11> ROS ED Constitutional Constitutional ED: Denies chills, fever(s) or sweats Eyes Eyes: Denies blurry vision or diplopia Cardiovascular Cardiovascular: Denies chest pain or palpitations Respiratory/Chest Respiratory/Chest: Denies cough, dyspnea, tachypnea or wheezing Gastrointestinal Gastrointestinal: Denies abdominal pain, constipation, diarrhea, nausea or vomiting Genitourinary Genitourinary ED: Denies dysuria, hematuria or urinary urgency Musculoskeletal Musculoskeletal: Denies arthralgias, back pain, myalgias or neck pain Integumentary Denies abscess, Abrasions or rash Neurologic Neurologic: Denies confusion, dizziness or paresthesias Psychiatric Psychiatric: Reports anxiety and depression; Denies suicidal ideation or suicidal thoughts Allergic/Immunologic Allergic/Immunologic ED: Denies lip swelling, mouth swelling or urticaria EXAM <LUCINA Jenkins - Last Filed: 04/17/22 23:11> Physical Exam Const Vital Signs: 04/17/22 20:54 Temperature 97.5 F L Temperature Source Temporal Pulse Rate 94 Respiratory Rate 15 Blood Pressure 125/80 H Blood Pressure Mean 95 Pulse Ox 98 Oxygen Delivery Method Room Air Positive well nourished, well developed and no apparent distress General Appearance ED: well developed HEENT Reports normocephalic and head/scalp atraumatic Mouth ED: Yes moist mucous membranes normal Eyes PERRL and EOMs intact bilaterally Neck full ROM and supple Chest Wall inspection of chest normal Resp normal respiratory effort and clear to auscultation bilaterally Cardio regular rate and regular rhythm GI soft to palpation, non-tender, non-distended and no masses Back/Spine normal ROM and normal to inspection Extremity full ROM Extremity Narrative: Several superficial lacerations to ventral forearms. No signs of infection. Neuro oriented x3, CN's II-XII intact bilaterally, moves all extremities, no focal motor deficits and no sensory deficits noted Sensorium / Orientation: awake and alert Psych denies homicidal ideation and denies suicidal ideation Appearance: grossly normal Attitude: withdrawn Skin Rashes: no rashes <Dr. Panchito Mclean DO - Last Filed: 04/17/22 23:35> Physical Exam Const Vital Signs: 04/17/22 20:54 Temperature 97.5 F L Temperature Source Temporal Pulse Rate 94 Respiratory Rate 15 Blood Pressure 125/80 H Blood Pressure Mean 95 Pulse Ox 98 Oxygen Delivery Method Room Air MDM <LUCINA Jnekins - Last Filed: 04/17/22 23:11> MDM MDM Narrative Medical decision making narrative: Patient has several superficial lacerations to her forearms bilaterally. Patient states that she has cuts to her thighs bilaterally as well but refuses to show me or her boyfriend them. Patient has a history of depression and anxiety and has attempted suicide in the past. Patient states that she has no current suicidal ideations or thoughts. She states that she currently has very little support as her boyfriend does not help much with the baby and her mom works full-time. She states her mom does offer to help watch the baby but she feels bad because she works. She states she does not have any friends and has nobody to talk to. Crisis will be talking to patient. Lab Data Labs: Laboratory Results - last 24 hr 04/17/22 04/17/22 04/17/22 22:40 22:40 22:40 WBC 9.8 RBC 4.48 Hgb 13.2 Hct 40.8 MCV 91.1 MCH 29.5 MCHC 32.4 RDW Std Deviation 41.1 RDW Coeff of Mathew 12.4 Plt Count 308 MPV 10.9 Immature Gran % (Auto) 0.400 Neut % (Auto) 70.5 H Lymph % (Auto) 24.5 [place] % (Auto) 4.0 Eos % (Auto) 0.3 Baso % (Auto) 0.3 Absolute Neuts (auto) 6.9 Absolute Lymphs (auto) 2.41 Nucleated RBC % 0 Sodium 142 Potassium 3.4 L Chloride 109 H Carbon Dioxide 23.0 Anion Gap 10 BUN 11 Creatinine 0.56 Estim Creat Clear Calc 119.91 Est GFR (MDRD) Af Amer 177 Est GFR (MDRD) Non-Af 146 BUN/Creatinine Ratio 19.7 Glucose 93 Calcium 9.5 Total Bilirubin 0.40 AST 22 ALT 34 Alkaline Phosphatase 106 Total Protein 7.8 Albumin 4.2 Globulin 3.6 Albumin/Globulin Ratio 1.2 Serum , Qual Ethyl Alcohol < 3.0 04/17/22 22:40 WBC RBC Hgb Hct MCV MCH MCHC RDW Std Deviation RDW Coeff of Mathew Plt Count MPV Immature Gran % (Auto) Neut % (Auto) Lymph % (Auto) [place] % (Auto) Eos % (Auto) Baso % (Auto) Absolute Neuts (auto) Absolute Lymphs (auto) Nucleated RBC % Sodium Potassium Chloride Carbon Dioxide Anion Gap BUN Creatinine Estim Creat Clear Calc Est GFR (MDRD) Af Amer Est GFR (MDRD) Non-Af BUN/Creatinine Ratio Glucose Calcium Total Bilirubin AST ALT Alkaline Phosphatase Total Protein Albumin Globulin Albumin/Globulin Ratio Serum , Qual NEGATIVE Ethyl Alcohol <Dr. Panchito Mclean, DO - Last Filed: 04/17/22 23:35> [facility] Lab Data Labs: Laboratory Results - last 24 hr 04/17/22 04/17/22 04/17/22 22:40 22:40 22:40 WBC 9.8 RBC 4.48 Hgb 13.2 Hct 40.8 MCV 91.1 MCH 29.5 MCHC 32.4 RDW Std Deviation 41.1 RDW Coeff of Mathew 12.4 Plt Count 308 MPV 10.9 Immature Gran % (Auto) 0.400 Neut % (Auto) 70.5 H Lymph % (Auto) 24.5 [place] % (Auto) 4.0 Eos % (Auto) 0.3 Baso % (Auto) 0.3 Absolute Neuts (auto) 6.9 Absolute Lymphs (auto) 2.41 Nucleated RBC % 0 Sodium 142 Potassium 3.4 L Chloride 109 H Carbon Dioxide 23.0 Anion Gap 10 BUN 11 Creatinine 0.56 Estim Creat Clear Calc 119.91 Est GFR (MDRD) Af Amer 177 Est GFR (MDRD) Non-Af 146 BUN/Creatinine Ratio 19.7 Glucose 93 Calcium 9.5 Total Bilirubin 0.40 AST 22 ALT 34 Alkaline Phosphatase 106 Total Protein 7.8 Albumin 4.2 Globulin 3.6 Albumin/Globulin Ratio 1.2 Serum , Qual Ethyl Alcohol < 3.0 04/17/22 22:40 WBC RBC Hgb Hct MCV MCH MCHC RDW Std Deviation RDW Coeff of Mathew Plt Count MPV Immature Gran % (Auto) Neut % (Auto) Lymph % (Auto) [place] % (Auto) Eos % (Auto) Baso % (Auto) Absolute Neuts (auto) Absolute Lymphs (auto) Nucleated RBC % Sodium Potassium Chloride Carbon Dioxide Anion Gap BUN Creatinine Estim Creat Clear Calc Est GFR (MDRD) Af Amer Est GFR (MDRD) Non-Af BUN/Creatinine Ratio Glucose Calcium Total Bilirubin AST ALT Alkaline Phosphatase Total Protein Albumin Globulin Albumin/Globulin Ratio Serum , Qual NEGATIVE Ethyl Alcohol Treatment and Re-Evaluation Narrative: I have personally performed a face to face assessment of the patient and have reviewed the FIIL Note. I performed a substantive portion of the visit including all aspects of the following. My bey findings include: History: Patient presents with depression that has been getting progressively worse. Patient states she delivered her baby 2 months ago. Patient states she had some preeclampsia at the end of her . Patient states that her depression has been getting worse. Patient denies any suicidal ideations but started cutting herself tonight. Patient states she did this to relieve stress. Patient does not see a psychiatrist. Exam: Vital signs are stable. Patient is afebrile. Patient is in no acute distress. Oral mucosa is pink and moist. Neck is supple. Trachea is midline. No JVD. Heart was regular rate and rhythm. Lungs are clear and equal bilaterally. Abdomen is soft. Bowel sounds are normal. There is no tenderness. Cranial nerves II through XII are intact. There are no focal motor or sensory deficits noted. Patient does have a depressed mood and flat affect. Patient denies any suicidal homicidal ideations. Medical Decision Making: Basic labs will be obtained for medical clearance. Differential diagnosis includes depression, infection, preeclampsia, and electrolyte abnormality. CBC will be obtained to assess for leukocytosis and anemia. Basic metabolic profile will be obtained to assess for electrolyte abnormality and renal function. Serum hCG will be obtained to assess for . Serum alcohol will be obtained to assess for alcohol intoxication. CBC was reviewed and was within normal limits. Basic metabolic profile was reviewed and was within normal limits. Serum alcohol level was reviewed and was normal. Serum hCG was reviewed and was negative. Case was discussed with crisis. They will evaluate the patient after screening labs have returned. I do not feel the patient requires admission for her depression however, she would benefit from outpatient follow-up and regular counseling appointments. Crisis evaluated the patient and will arrange for close outpatient follow-up. Patient is not suicidal or homicidal. Safety plan is not required. Patient is comfortable with this plan. All questions were answered. Discharge Plan Triage Chief Complaint: Mental Health ED Midlevel Provider: Megan White ED Provider: Panchito Mclean Dx/Rx/DC Orders Clinical Impression: depression, Status post vaginal delivery Instructions: Depression, Depression: Treatment, ED Depression Prescriptions: No Action ondansetron [ondansetron] 4 MG tablet 4 mg PO Q8H PRN PRN (Reason: Nausea) Qty: 10 0RF Fa 60 mg iron-1 mg Tablet 1 tab PO DAILY hydroxyzine pamoate 50 mg capsule 50 mg PO Q6H PRN PRN (Reason: Anxiety) Label Comments: TAKE 1 CAPSULE BY MOUTH EVERY 6 HOURS NEEDED FOR ANXIETY fluoxetine [Prozac] 20 mg capsule 20 mg PO DAILY Qty: 30 0RF levonorgestrel [Plan B One-Step] 1.5 mg tablet 1.5 mg PO ONCE Qty: 1 0RF Primary Care Provider: Rogelio Mathis Referrals: Rogelio Mathis MD [Primary Care Provider] -
[2022-04-17 22:55] LABS: Absolute Lymphocyte Count 2.41 X10^3/uL (0.83-4.51); Absolute Neutrophil Count 6.9 X10^3/uL (2.0-7.7); Basophil# 0.03 X10^3/uL; Basophil% 0.3 % (0-1); Eosinophil# 0.03 X10^3/uL; Eosinophils% 0.3 % (0-5); Hematocrit 40.8 % (37-47); Hemoglobin 13.2 g/dL (12.0-15.0); Lymphocyte # 2.41 X10^3/ul (0.83-4.51); Lymphocyte % 24.5 % (19-41); Mean Corp Hgb Conc 32.4 g/dL (32-36); Mean Corpuscular Hgb 29.5 pg (27.0-32.0); Mean Corpuscular Volume 91.1 fL (81-99); Mean Platelet Vol. 10.9 fl (6.2-12.0); Monocyte# 0.39 X10^3/uL; NRBC Flagged by Analyzer 0 % (0-5); Neutrophil # 6.94 X10^3/uL (2.7-7.7); Neutrophil % 70.5 % (47-70); Platelet Count 308 K/mm3 (150-450); RBC Distribution Width CV 12.4 % (11.6-14.6); RBC Distribution Width SD 41.1 fl (35.1-43.9); Red Blood Count 4.48 M/mm3 (4.2-5.4); White Blood Count 9.8 K/mm3 (4.4-11.0)
[2022-04-17 23:05] LABS: Internal QC Validated? YES +Cl - CLEAR BKGD; Pregnancy, Serum, hCG Quali. NEGATIVE Negative
[2022-04-17 23:07] LABS: Alcohol, Blood (Medical)-Serum < 3.0 mg/dL
[2022-04-17 23:13] LABS: ALB/GLOB Ratio 1.2 RATIO (0.9-2.4); AST(SGOT) 22 U/L (15-37); Alanine Aminotransfer ALT/SGPT 34 U/L (13-56); Albumin, Serum 4.2 g/dL (3.2-5.0); Alkaline Phosphatase 106 U/L (45-117); Anion Gap 10 (5-15); BUN 11 mg/dL (7-18); BUN/Creat Ratio 19.7 RATIO (10-20); Calcium,Total 9.5 mg/dL (8.5-10.1); Chloride 109 mmol/L (98-107); Creatinine, Serum 0.56 mg/dL (0.55-1.02); EST Glomerular Filtration Rate 146 mL/min (>60); Est Glom Filt Rate - Afr Amer 177 mL/min (>60); Estimated Creatinine Clearance 119.91 ml/min; Globulin 3.6 g/dL (2.2-4.2); Glucose 93 mg/dL (74-106); Potassium 3.4 mmol/L (3.5-5.1); Protein, Total 7.8 g/dL (6.4-8.2); Sodium Level 142 mmol/L (136-145)
== END 2022-04-17 23:42 | disposition home or self-care (01) ==
PROVIDERS: Physician Assistant; Emergency Provider Emergency Medicine; PCP Family Medicine; Visit Provider Emergency Medicine
DX: O99.345 Other mental disorders complicating the puerperium (principal); F41.9 Anxiety disorder, unspecified; S51.812A Laceration without foreign body of left forearm, initial encounter; S51.811A Laceration without foreign body of right forearm, initial encounter; F32.A Depression, unspecified; W26.8XXA Contact with other sharp object(s), not elsewhere classified, initial encounter
CPT/HCPCS: 80053; 82077; 84703; 85025; 99282

== ENCOUNTER → 2022-10-13 | Outpatient (CLI) | payer MEDICAID, SELFPAY | END | disposition home or self-care (01) | LOC: LABSPEC 16:16 | PROVIDERS: PCP Family Medicine; Referring Provider Obstetrics & Gynecology; Visit Provider Obstetrics & Gynecology | DX: N89.8 Other specified noninflammatory disorders of vagina (principal) | CPT/HCPCS: 87070; 87205 ==

== ENCOUNTER 2023-04-22 18:20 | Emergency (ER) | payer MEDICAID, SELFPAY ==
[2023-04-22 18:24] VITALS: BP 141/78; PULSE 90; RESP 18; TEMP 36.6; O2SAT 99; BMI 22.3
--- NOTE | 2023-04-22 18:48 | ED.RN ---
PT DENYING ACTING ON SI DUE TO CHILD BUT THERE ARE REPORTS THAT SHE HAS MADE THREATS TO KILL THEM BOTH. TO HAVE SITTER AT BEDSIDE.
--- NOTE | 2023-04-22 18:55 | EX.ED.DYSGE1 ---
HPI History of Present Illness Chief Complaint: Suicidal [facility] Medical History Anxiety Asthma Pre-eclampsia Home Medications norgestimate 0.25 mg-ethinyl estradiol 35 mcg tablet (Sprintec (28)) 1 tab PO DAILY #84 tabs 10/13/22 [Rx Last Taken Unknown] hydrocortisone acetate 25 mg rectal suppository (Anusol-HC) 25 mg NC QHS #12 ea 03/29/23 [Rx Last Taken Unknown] hydroxyzine pamoate 25 mg capsule (Vistaril) 25 mg PO BID PRN 03/29/23 [History Last Taken Unknown] Allergy/AdvReac Type Severity Reaction Status Date / Time No Known Allergies Allergy Verified 04/22/23 18:24 Surgical History [place] teeth extracted Social History adopted: No household members: family housing: house current occupational status: unemployed pets and animals: Yes pets and animals: dog(s) history of recent travel: No sexually active: Yes Smoking Status: Current every day smoker tobacco type: e-cigarettes alcohol intake: never substance use type: does not use well-balanced diet: daily or most days caffeine: Yes Type: coffee Number of servings: 1 eating out: rarely or never during the past year weight has: increased > 10 lbs what type of physical activity do you participate in: none leonarda/anabaptism: Jehovah'S Witness seatbelt use: always do you feel safe at home: Yes additional social history: FOB- [employer] EXAM Physical Exam Const Vital Signs: 04/22/23 18:24 Temperature 97.8 F Temperature Source Temporal Pulse Rate 90 Respiratory Rate 18 Blood Pressure 141/78 H Blood Pressure Mean 99 Pulse Ox 99 Oxygen Delivery Method Room Air MDM MDM MDM Narrative Medical decision making narrative: HISTORY OF PRESENT ILLNESS: 23-year-old female presents with suicide ideation. She is tearful in triage, she is overwhelmed. She made the statement, I do not want to live but would never act on it. Per police patient made threats that she would kill her child and her Robin tonight. REVIEW OF SYSTEMS: Pertinent positives: none Pertinent negatives: denies SI, HI, AH, VH PHYSICAL EXAM: Nursing triage notes reviewed, Vital signs reviewed Constitutional: please see mdm HENT: MMM Eyes: Pupils equal round and reactive to light, Extraocular muscles intact Neck: No stridor, no JVD, full neck ROM Lungs: Clear to auscultation, No wheezing or rales. No increased work of breathing, no conversational dyspnea, no accessory muscle use, no nasal flaring. No respiratory distress noted Heart: Regular rate and rhythm, No murmurs, No rubs and No gallops, 2+ distal pulses (radial, femoral, posterior tibial) in all extremities Abdomen: Soft, there is no tenderness, rigidity, rebound or guarding, no obvious peritoneal signs, no palpable pulsatile abdominal masses, no auscultated abdominal bruit : No CVAT Extremities: No edema Neuro: No focal neurological deficits, cranial nerves II through XII intact, 5/5 strength in all extremities. Intact sensation to light touch in all extremities, 2+ reflexes bilateral patella tendons. Normal gait. No ataxia. Skin: No rash or lesions noted Psych: Tearful, goal-directed thought process, normal affect, not respond internal stimuli MEDICAL DECISION MAKING: Chief Complaint: Homicidal ideation External records reviewed: Seen in 2021 2023 alcohol withdrawal and actors affecting care: Tylenol poisoning f Social determinants of health: history of alcohol abuse Consults: Psych behavioral health MDM Narrative: The patient was hemodynamically stable, afebrile, nontoxic-appearing. Exam without focal cardiopulmonary abnormalities. Medical clearance was obtained per protocol [place] slip was placed in the chart ALL IMAGES (IF OBTAINED) HAVE BEEN PERSONALLY REVIEWED AND INTERPRETED BY MYSELF. Tylenol level negative Salicylate level negative Alcohol level negative CBC without leukocytosis, no anemia or thrombocytopenia BMP with mild hypokalemia otherwise no significant electrolyte abnormality, [place] or anion gap Urine tox screen positive for THC The patient is medically cleared. Will await behavioral health consultation evaluation for final disposition. I behavioral social service assistant evaluate the patient was highly concerned based on her story of wanting to harm her child and her child's father. Behavioral social work recommended inpatient mission. We are awaiting inpatient beds. To signed out to nighttime physician pending transfer to [facility]. The patient and/or family, caregivers express understanding. The patient and/or family, caregivers agrees with the plan. Shared decision making: I will have a discussion with the patient and or visitors regarding risk/benefits of further testing or admission. They will be made aware of of the risk/benefits inherent in this decision they will be given the opportunity to voice understanding. Total critical care time today provided was at least 0 minutes. This excludes separately billable procedures. Critical care time (if documented) is secondary to the patient having high probability of clinically significant/life threatening deterioration in the patient's condition which required my urgent intervention. Impression: 1. Homicidal ideation Dispo: Pending transfer to [facility]. Signed out to overnight physician pending behavioral evaluation This note was generated with [employer] dictation software. It may contain incorrect words, spelling, and punctuation that were not noted in review of the chart prior to signing. Lab Data Labs: Laboratory Results - last 24 hr 04/22/23 19:31 WBC 10.6 RBC 4.15 L Hgb 12.3 Hct 37.4 MCV 90.1 MCH 29.6 MCHC 32.9 RDW Std Deviation 41.5 RDW Coeff of Mathew 12.6 Plt Count 257 MPV 10.8 Immature Gran % (Auto) 0.400 Neut % (Auto) 83.6 H Lymph % (Auto) 11.4 [place] % (Auto) 4.3 Eos % (Auto) 0.0 Baso % (Auto) 0.3 Absolute Neuts (auto) 8.9 H Absolute Lymphs (auto) 1.21 Nucleated RBC % 0 Sodium 142 Potassium 3.4 L Chloride 113 H Carbon Dioxide 24.0 Anion Gap 5 BUN 14 Creatinine 0.49 L Estim Creat Clear Calc 135.89 Est GFR (MDRD) Af Amer 205 Est GFR (MDRD) Non-Af 169 BUN/Creatinine Ratio 28.7 H Glucose 123 H Calcium 9.5 Serum , Qual NEGATIVE Salicylates < 1.7 L Urine Opiates Screen NEGATIVE Urine Methadone Screen NEGATIVE Acetaminophen < 2.0 L Ur Barbiturates Screen NEGATIVE Ur Phencyclidine Scrn NEGATIVE Ur Amphetamines Screen NEGATIVE MDMA (Ecstasy) Screen NEGATIVE U Benzodiazepines Scrn NEGATIVE Urine Cocaine Screen NEGATIVE U Cannabinoids Screen POSITIVE H Ur Drug Screen Comment Ethyl Alcohol < 3.0 Discharge Plan Triage Chief Complaint: Suicidal ED Provider: Mk Tim Dx/Rx/DC Orders Prescriptions: No Action hydroxyzine pamoate [Vistaril] 25 mg capsule 25 mg PO BID PRN hydrocortisone acetate [Anusol-HC] 25 mg suppository 25 mg NC QHS Qty: 12 2RF norgestimate-ethinyl estradiol [Sprintec (28)] 0.25-35 mg-mcg tablet 1 tab PO DAILY Qty: 84 4RF Primary Care Provider: Rogelio Mathis Referrals: Rogelio Mathis MD [Primary Care Provider] -
--- OUTSIDE RECORDS SUMMARY | 2023-04-22 19:06 | XMS RPT_ITS | CCD ---
Author Name Unknown Address [address] [place] [address] Organization [facility] Care Team Providers Care Epic Anesthesia Analyst Name Role Phone Unavailable Unavailable Michelle Souza Unavailable Unavailable Michelle Rm Unavailable Unavailable GATITO TOUSSAINT MD, HAZEL Primary Care Physician [phone] DINO CASTRO, ANKIT Guadalupe Attending Unavail able GATITO TOUSSAINT MD, [facility] Unavailsylvester SUN MD, ANKIT Guadalupe Attending Unavail able GATITO TOUSSAINT MD, [facility] Unavailsylvester SOTO DO, DR. BRYNN Silva Attending Jhon TOUSSAINT MD, [facility] Unavailsylvester SOTO DO, DR. BRYNN Silva Admitting Unavailsylvester SOTO DO, DR. BRYNN Sliva Attending UnavailGino TOUSSAINT MD, [facility] UnavailZACHARY Dominguez MD Attending Unavailable GATITO TOUSSAINT MD, [facility] Unavailsylvester ADHIKARI MD, [facility] [employer] Unavailab Miquel CASTRO, ZACHARY Krishna Admitting Unavailable SUN PETERS DO Attending Unavailable GATITO TOUSSAINT MD, [facility] UnavailVIRGIE Benitez Primary Care OZZIE Brush Referring OZZIE Breen Attending EFRAIN Joseph Attending Unavailable VIRGIE FINN Primary Care OZZIE Brush Referring Ronelab darnell Medications Current Medications Medication Drug Class(es) Dates Sig (Normalized) Sig (Original) amoxicillin 500 mg oral capsule (2 sources) Penicillin-class Antibacterial Start: 04-21-2019 take 1 capsule by mouth three times daily amoxicillin 500 mg oral capsule TAKE 1 CAPSULE THREE TIMES DAILY UNTIL GONE Start Date: 04/21/19 Status: Ordered ascorbic acid 40 mg / ferrous fumarate 191 mg / folic acid 1 mg / niacinamide 3 mg / polysaccharide iron complex 136 mg oral capsule (2 sources) Vitamin C Start: 01-08-2022 take 1 capsule by mouth once daily Integra F oral capsule Dose = 1 cap(s), Oral, Daily, 0 Refill(s) Start Date: 01/08/22 Status: Ordered ferrous sulfate 325 mg oral tablet (1 source) Start: 01-10-2022 ferrous sulfate 325 mg (65 mg elemental iron) oral tablet Dose : 325 mg = 1 tab(s), Oral, qDayM, # 30 tab(s), 0 Refill(s), Pharmacy: [id number], 155, cm, 01/08/22 8:50:00 EDT, Height Start Date: 01/10/22 Status: Ordered naproxen 500 mg oral tablet (2 sources) Nonsteroidal Anti-inflammatory Drug Start: 04-21-2019 take 1 tablet by mouth twice daily naproxen 500 mg oral tablet TAKE 1 TABLET BY MOUTH TWICE DAILY Start Date: 04/21/19 Status: Ordered ondansetron 4 mg disintegrating oral tablet (2 sources) Serotonin-3 Receptor Antagonist Start: 01-08-2022 ondansetron 4 mg oral tablet, disintegrating Dose : 4 mg = 1 tab(s), Oral, q6h, PRN Nausea/Vomiting, # 20 tab(s), 0 Refill(s) Start Date: 01/08/22 Status: Ordered PreNata (2 sources) Start: 01-08-2022 PreNata Dose = 1 tab(s), Chewed, qDay, 0 Refill(s) Start Date: 01/08/22 Status: Ordered Completed/Discontinued Medications Medication Drug Class(es) Dates Sig (Normalized) Sig (Original) NIFEdipine 10 mg oral capsule (1 source) Dihydropyridine Calcium Channel Al Start: 01-10-2022 End: 01-09-2022 Procardia Start: 01/10/22 0:00:00 EDT, Dose = 10 mg, = 1 cap(s), Oral, 01/08/22 20:43:00 EDT Start Date: 01/10/22 Stop Date: 01/09/22 Status: Completed Problems Problem Classification Problem Date Documented Da te Episodic/Chronic Anxiety disorders (1 source) Anxiety disorder; Translations: [Anxiety disorder, unspecified] Onset: 12-02-2021 Chronic Early or threatened labor (2 sources) Premature labor 01-08-2022 Episodic Hemorrhage during ; abruptio placenta; placenta previa (1 source) Threatened miscarriage; Translations: [Threatened ] Onset: 07-25-2021 Episodic Other and delivery including normal (10 sources) Onset: 12-02-2021 07-25-2021 Episodic Results Test Name Value Interpretation Reference Range Facil ity Vital Signs Date Time Vital Sign Value Performing Clinician Faci lity 01-10-2022 08:00-0400 Body temperature 98.6 [degF] ZACHARY PARKER MD [facility] 01-10-2022 08:00-0400 Diastolic blood pressure 62 mm[Hg] ZACHARY PARKER MD [facility] 01-10-2022 08:00-0400 Heart rate 92 /min ZACHARY PARKER MD [facility] 01-10-2022 08:00-0400 Mean blood pressure 80 mm[Hg] ZACHARY PARKER MD [facility] 01-10-2022 08:00-0400 Respiratory rate 20 /min ZACHARY PARKER MD [facility] 01-10-2022 08:00-0400 Systolic blood pressure 117 mm[Hg] ZACHARY PARKER MD [facility] 01-10-2022 04:04-0400 Body temperature 98.24 [degF] ZACHARY PARKER MD [facility] 01-10-2022 04:04-0400 Diastolic blood pressure 46 mm[Hg] ZACHARY PARKER MD [facility] 01-10-2022 04:04-0400 Heart rate 75 /min ZACHARY PARKER MD [facility] 01-10-2022 04:04-0400 Mean blood pressure 62 mm[Hg] ZACHARY PARKER MD [facility] 01-10-2022 04:04-0400 Respiratory rate 14 /min ZACHARY PARKER MD [facility] 01-10-2022 04:04-0400 Systolic blood pressure 95 mm[Hg] ZACHARY PARKER MD [facility] 01-09-2022 23:59-0400 Diastolic blood pressure 49 mm[Hg] ZACHARY PARKER MD [facility] 01-09-2022 23:59-0400 Systolic blood pressure 108 mm[Hg] ZACHARY PARKER MD [facility] 01-09-2022 23:45-0400 Body temperature 98.24 [degF] ZACHARY PARKER MD [facility] 01-09-2022 23:45-0400 Respiratory rate 16 /min ZACHARY PARKER MD [facility] 01-09-2022 19:45-0400 Heart rate 101 /min ZACHARY PARKER MD [facility] 01-09-2022 19:45-0400 Mean blood pressure 85 mm[Hg] ZACHARY PARKER MD [facility] 01-09-2022 15:58-0400 Reason For Taking VItal Signs ZACHARY PARKER MD [facility] 01-09-2022 12:38-0400 Reason For Taking VItal Signs ZACHARY PARKER MD [facility] 01-09-2022 07:58-0400 Reason For Taking VItal Signs ZACHARY PARKER MD [facility] 01-08-2022 08:50-0400 Body height 155 cm ZACHARY PARKER MD [facility] 01-08-2022 08:50-0400 Body weight 68.2 kg ZACHARY PARKER MD [facility] 01-08-2022 08:50-0400 Body weight 28.39 kg/m2 ZACHARY PARKER MD [facility] 01-08-2022 06:45-0400 Diastolic blood pressure 52 mm[Hg] DR BRYNN SOTO DO [facility] 01-08-2022 06:45-0400 Heart rate 102 /min DR BRYNN SOTO DO [facility] 01-08-2022 06:45-0400 Mean blood pressure 76 mm[Hg] DR BRYNN SOTO DO [facility] 01-08-2022 06:45-0400 Systolic blood pressure 123 mm[Hg] DR BRYNN SOTO DO [facility] 01-08-2022 06:32-0400 Diastolic blood pressure 83 mm[Hg] DR BRYNN SOTO DO [facility] 01-08-2022 06:32-0400 Heart rate 103 /min DR BRYNN SOTO DO [facility] 01-08-2022 06:32-0400 Mean blood pressure 89 mm[Hg] DR BRYNN SOTO DO [facility] 01-08-2022 06:32-0400 Systolic blood pressure 100 mm[Hg] DR BRYNN SOTO DO [facility] 01-08-2022 06:20-0400 Diastolic blood pressure 62 mm[Hg] DR BRYNN SOTO DO [facility] 01-08-2022 06:20-0400 Heart rate 100 /min DR BRYNN SOTO DO [facility] 01-08-2022 06:20-0400 Mean blood pressure 78 mm[Hg] DR BRYNN SOTO DO [facility] 01-08-2022 06:20-0400 Systolic blood pressure 110 mm[Hg] DR BRYNN SOTO DO [facility] 01-08-2022 03:24-0400 Body temperature 98.24 [degF] DR BRYNN SOTO DO [facility] 01-08-2022 03:24-0400 Reason For Taking VItal Signs DR BRYNN SOTO DO [facility] 01-08-2022 01:29-0400 Body height [address] BRYNN SOTO DO [facility] 01-08-2022 01:29-0400 Body weight 68.[address] BRYNN SOTO DO [facility] 01-08-2022 01:29-0400 Body weight 28.39 kg/m2 DR BRYNN SOTO DO [facility] 01-08-2022 00:05-0400 Body temperature 98.06 [degF] DR BRYNN SOTO DO [facility] 01-08-2022 00:05-0400 Reason For Taking VItal Signs DR BRYNN SOTO DO [facility] 12-02-2021 09:19-0400 Diastolic blood pressure 65 mm[Hg] DR BRYNN SOTO DO [facility] 12-02-2021 09:19-0400 Systolic blood pressure 94 mm[Hg] DR BRYNN SOTO DO [facility] 12-02-2021 09:09-0400 Body height 157.[address] BRYNN SOTO DO [facility] 12-02-2021 09:09-0400 Body weight 68.[address] BRYNN SOTO DO [facility] 12-02-2021 09:09-0400 Body weight 27.49 kg/m2 DR BRYNN SOTO DO [facility] 12-02-2021 08:40-0400 Body temperature 98.42 [degF] DR BRYNN SOTO DO [facility] 12-02-2021 08:40-0400 Diastolic blood pressure 64 mm[Hg] DR BRYNN SOTO DO [facility] 12-02-2021 08:40-0400 Heart rate 100 /min DR BRYNN SOTO DO [facility] 12-02-2021 08:40-0400 Respiratory rate 18 /min DR BRYNN SOTO DO [facility] 12-02-2021 08:40-0400 Systolic blood pressure 140 mm[Hg] DR BRYNN SOTO DO [facility] 12-02-2021 08:03-0400 Body temperature 98.42 [degF] ANKIT SUN MD [facility] 12-02-2021 08:03-0400 Body weight 68.9 kg ANKIT SUN MD [facility] 12-02-2021 08:03-0400 Diastolic blood pressure 83 mm[Hg] ANKIT SUN MD [facility] 12-02-2021 08:03-0400 Heart rate 93 /min ANKIT SUN MD [facility] 12-02-2021 08:03-0400 Respiratory rate 16 /min ANKIT SUN MD [facility] 12-02-2021 08:03-0400 Systolic blood pressure 127 mm[Hg] ANKIT SUN MD [facility] 10-29-2021 20:50-0400 Body temperature 98.42 [degF] ANKIT SUN MD [facility] 10-29-2021 20:50-0400 Diastolic blood pressure 70 mm[Hg] ANKIT SUN MD [facility] 10-29-2021 20:50-0400 Heart rate 88 /min ANKIT SUN MD [facility] 10-29-2021 20:50-0400 Mean blood pressure 86 mm[Hg] ANKIT SUN MD [facility] 10-29-2021 20:50-0400 Respiratory rate 18 /min ANKIT SUN MD [facility] 10-29-2021 20:50-0400 Systolic blood pressure 118 mm[Hg] ANKIT SUN MD [facility] 07-25-2021 10:40-0400 Body height 155 cm SUN PETERS DO [facility] 07-25-2021 10:40-0400 Body temperature 98.42 [degF] SUN PETERS DO [facility] 07-25-2021 10:40-0400 Body weight 54.5 kg SUN PETERS DO [facility] 07-25-2021 10:40-0400 Diastolic blood pressure 63 mm[Hg] SUN PETERS DO [facility] 07-25-2021 10:40-0400 Heart rate 97 /min SUN PETERS DO [facility] 07-25-2021 10:40-0400 Respiratory rate 16 /min SUN PETERS DO [facility] 07-25-2021 10:40-0400 Systolic blood pressure 121 mm[Hg] SUN PETERS DO [facility] Encounters Encounter Date Encounter Type Care Provider Facility Start: 02-15-2022 End: 02-15-2022 ambulatory VIRGIE Singh [facility] Start: 01-08-2022 End: 01-10-2022 Evaluation and management of inpatient ZACHARY PARKER MD Facility:A Start: 01-08-2022 End: 01-10-2022 Evaluation and management of inpatient ZACHARY PARKER MD [facility] Start: 01-08-2022 End: 01-08-[address] BRYNN SOTO DO Facility:B Start: 01-07-2022 End: 01-08-[address] BRYNN SOTO DO [facility] Start: 12-02-2021 End: 12-02-[address] BRYNN SOTO DO Facility:B Start: 12-02-2021 End: 12-02-2021 Emergency department patient visit ANKIT SUN MD Facility:B Start: 12-02-2021 End: 12-02-[address] BRYNN SOTO DO [facility] Start: 12-02-2021 End: 12-02-2021 Emergency department patient visit ANKIT SUN MD [facility] Start: 10-29-2021 End: 10-29-2021 Emergency department patient visit ANKIT SUN MD Facility:B Start: 10-29-2021 End: 10-29-2021 Emergency department patient visit ANKIT SUN MD [facility] Start: 07-25-2021 End: 07-25-2021 Emergency department patient visit SUN PETERS DO Facility:B Start: 07-25-2021 End: 07-25-2021 Emergency department patient visit SUN PETERS DO [facility] Start: 03-13-2017 Ambulatory Michelle Rm Facility:[facility] Start: 03-13-2017 End: 03-13-2017 Ambulatory Michelle Rm Work Phone: [facility] Procedures Date Procedure Procedure Detail Performing Clinician Start: 04-17-2019 Extraction of wisdom tooth SUN PETERS DO Payers Date Payer Category Payer Unknown [id number] 2016 Unknown [id number] 2001 Unknown [id number] 2001 Unknown [id number] [id number] 2001 Unknown [id number] [id number] [id number] 2001 Unknown [id number] 2.16.8 [id number] 2001 Unknown [id number] [id number] [id number] 2001 Unknown [id number] 2.16.8 [id number] 2001 Unknown [id number] [id number]. [id number] 2001 Unknown [id number] [id number] Social History Date Type Detail Facility Start: 03-14-2017 Tobacco smoking stat [facility] Unknown if ever smoked [facility] Work Phone: Sex Assigned At Not on file [facility] Work Phone: Start: 04-21-2019 Tobacco smoking status Never s moked tobacco (finding) [facility] Sex Assigned At Female [facility] Functional Status Date Assessment Result Facility 01-10-2022 Functional Status Repostioned right side [facility] 01-09-2022 Functional Status Eating [facility] 01-08-2022 Functional Status [facility] 01-08-2022 Functional Status [facility] 01-08-2022 Functional Status Awake, Resting, Up to bathroom, Up with assistance [facility] 01-08-2022 [facility] Functional Status [facility] 12-02-2021 Functional Status N/A Sarah [facility] 10-29-2021 Functional Status Independent Sarah [facility] 10-29-2021 Functional Status Standard Safet y ID band on, Call device within reach, Bed in low position, Wheels locked, Upper/Half-Length side-rails up, Phone within reach, personal items within reach, Visitor at bedside, Safety level maintained [facility] 07-25-2021 Functional Status [facility] 07-25-2021 Functional Status [facility] Mental Status Date Assessment Result Facility 01-10-2022 Mental Status Orientation Oriented x 4 [facility] 01-09-2022 [facility] 01-09-2022 [facility] 01-08-2022 Mental Status Orientation Oriented x 4 [facility] 12-02-2021 Mental Status Oriented x 4 [facility] 10-29-2021 Mental Status Orientation Oriented x 4 [facility] 10-29-2021 Mental Status [facility] 07-25-2021 Mental Status [facility] 07-25-2021 Mental Status [facility] Clinical Notes 07-25-2021 to 01-10-2022 Note Date & Type Note Facility 01-10-2022 Maternal and feta l medicine Progress note MATERNAL MEDICINE REVIEW Consult Referral from: [facility]. Dr. Soto. Patient transferring her care to [facility] in [place] next week I have personally seen the patient earlier in the day at rounds with the residents. CHIEF COMPLAINT Admission Summary: Admitted on January 08, 2022. She is 21 years of age 1 with an VIMAL of March 18, 2022 by first trimester ultrasound presented to labor and delivery as a transfer from [place] on account of contractions that did not ceased after subcu Brethine and IV hydration and additionally associated with cervical change in terms of effacement although she remained closed. She received the first dose of Celestone at [place] and was started on magnesium sulfate At my review today: She denies any history of headaches, vision changes, right upper quadrant pain, contractions, vaginal bleeding, leakage of fluid, and states the activity is plentiful. She additionally has no history of chills or fevers or any arthralgias. She generally feels well. See assessments for additional details Maternal Vitals: Systolic blood pressure 95. Diastolic blood pressure 46. Respiratory 14. Maternal heart rate 75 bpm. Temperature 36.8. Testing: Presently FHR strip shows normal heart rate with normal baseline variability and demonstrative of accelerations and without any decelerations. It is satisfactory and reactive. Uterine activity is minimal. Obstetric Imaging: On 01/07/2023 imaging- Normal anatomy. EFW 03/24/2000 grams at 55 percentile with the AC biometrics at 51 percentile. No anomalies normal amniotic fluid volume. Cephalic presentation. Recent Laboratory Evaluationns 01/08 1007 Magnesium Lvl3.8H Hct26.8L Hgb9.2L MCH31.0 MCHC34.3 MCV90.3 MPV8.3 [id number] RBC2.97L RDW12.8 WBC13.2H ASSESSMENTS and DISCHARGE PLANNING on 01/10/2022 VIMAL is: March 18, 2022. Today, she is 30 weeks and 3 days. She is being discharged home today on January 10, 2022 and will follow up with a physician in [facility] and will do MFM transfer letter to them [1]. labor: Diagnosis based on cervical change albeit with 6 cervical length. No evidence of infection abruption anomalies amniotic fluid aberrations the condition is idiopathic. There is a further prognostication occurred with cervical length and it is above the 50th percentile and thus the magnesium sulfate tocolysis will be limited to 12 hours and followed by p.o. Procardia. Anticipate discontinuation of magnesium sulfate and after 6 PM.- Update - on 01/10/2022: She is stable on p.o. Procardia which is prescribed for uterine irritability and reduce the need for triage for [place]. She will follow-up with her physician. She is s/p 12 hours of magnesium sulfate and a course of corticosteroids [2]. Hemoglobin 9.2 g/dL:- Update - on 01/10/2022: Serum ferritin levels were 10.8 and she received 2 dosages of ferritin 1 yesterday and 1 today. We expect her to improve. [2]. Co-Morbidities: She is in excellent general health [3]. Past Obstetric History: Nulliparous [4]. Care: Reviewed. Blood type labs are pending. Covid precautions are in place. Inpatient Care: Floor time of 20 minutes I have seen and evaluated the patient. I have obtained the bey portion of the history and physical examination as stated above. I have discussed the patient with the resident. I have reviewed the resident's documentation and agree with it. The medical decision making was done together with the resident and is documented in resident note. Deedee Adhikari MD. Maternal Medicine Digitally Signed by DAYTON ADHIKARI MD on 01/10/2022 04:25 PM [facility] 01-10-2022 Note . MICRO - Microbiology PROCEDURE: Urine Culture [*1] SOURCE: Urine BODY SITE: COLLECTED DATE/TIME: 01/09/2022 08:45 EDT RECEIVED DATE/TIME: 01/09/2022 09:02 EDT START DATE/TIME: 01/09/2022 09:02 EDT FREE TEXT SOURCE: FINAL REPORTS Final Report [] Verified Date/Time/Personnel: 01/10/2022 14:20 EDT 10,000 - 50,000 cfu/ml Mixed growth consistent with normal urogenital ely. Performing Locations *1: This test was performed at: [facility], [address] [place] [address], [id number] , [facility] ([place]) 01-10-2022 Hospital Discharg e instructions Patient Education 01/10/2022 08:56:20 7 - Labor and Delivery Outpatient Instructions(CUSTOM) [facility] OUT[facility] HOME-GOING INSTRUCTIONS _X_ You are to follow up with your physician in ___ days/weeks. ACTIVITY ___ Bedrest ___xActivity as tolerated ___ No work/school for ___ days. ___Other PRESCRIPTION GIVEN ___Yes no NAUSEA/VOMITING ___ Take small, frequent amounts of clear liquids. Avoid fruit juices and milk. ___ Increase fluid intake to a minimum of 8 ounces of fluid every hour while awake. ___ Soft diet. Rice, crackers, bananas, Jell-O, cooked carrots, applesauce. ___ [place] diet. Avoid caffeine, chocolate, alcohol, spiced/greasy foods. URINARY TRACT INFECTION _x__ Drink 8-12 glasses of water every day. ___ Urinate frequently; do not limit fluids to reduce frequency of urination. __x_ Call your physician if burning and frequency with urination returns after taking all your medication. __x_ Call your physician if you have a temperature of 100.4 degrees Fahrenheit or higher. _x__ Wipe from front to back. SIGNS OF PRE-ECLAMPSIA __x_ Severe heartburn. __xx_ Persistent headache not relieved by Tylenol. x___ Increased in swelling of face, hands and feet. _x__ Blurred vision, double vision, or spots in the eyes. __x_ Persistent vomiting. _x__ *Convulsions or seizures. LABOR ___ Restrict activity. __x_ Drink 8-12 glasses of water every day. ___ Urinate frequently ___ Pelvic rest. No sexual intercourse/ Call your physician if you experience: _x__ Increase in vaginal discharge, leaking fluid, or vaginal bleeding. _x__ More than 4, 5, or 6 contractions in one hour. _x__ Burning and frequency with urination. DECREASED MOVEMENT _x__ Lie down on your left side, drink some fluids and relax. Count the movements. You need to have 10 movements in 2 hours. _x__ If you do not feel the 10 movements, call your physician. OTHER ___ After an exam you may experience some spotting or discharge. As long as it is not bright red and heavy like a period or continues to leak as if your water broke, it is to be expected. ___ LABOR Call your physician if you experience: __x_ Painful uterine contractions every 5-7___ minutes for ___1 hours. __x_A gush or continuous trickle of watery discharge. COME TO THE HOSPITAL AND CALL PHYSICIAN IF: __x_ Your abdomen feels continually firm. __x*Bleeding is bright red and enough to saturate a pad in one hour or less. *Call 911 or go to the nearest Emergency Room for assistance. Form [id number] D: 02/24 Document Released: 03/05/2006 Document Revised: 02/22/2012 Document Reviewed: 03/05/2006 Present Patient Information 2012 [employer]. 01/10/2022 08:54:51 Preventing Preventing is when your baby is delivered between 20 weeks and 37 weeks of . A full-term lasts for at least 37 weeks. can be dangerous for your baby because the last few weeks of are an important time for your baby's brain and lungs to grow. Many things can cause a baby to be born early. Sometimes the cause is not known. There are certain factors that make you more likely to experience , such as: Having a previous baby born . Being with twins or other multiples. Having had fertility treatment. Being overweight or underweight at the start of your . Having any of the following during : ?An infection, including a urinary tract infection (UTI) or an STI (sexually transmitted infection). ?High blood pressure. ?Diabetes. ?Vaginal bleeding. Being age 35 or older. Being age 18 or younger. Getting within 6 months of a previous . Suffering extreme stress or physical or emotional abuse during . Standing for long periods of time during , such as working at a job that requires standing. What are the risks? The most serious risk of is that the baby may not survive. This is more likely to happen if a baby is born before 34 weeks. Other risks and complications of may include your baby having: Breathing problems. Brain damage that affects movement and coordination (cerebral palsy). Feeding difficulties. Vision or hearing problems. Infections or inflammation of the digestive tract (colitis). Developmental delays. Learning disabilities. Higher risk for diabetes, heart disease, and high blood pressure later in life. What can I do to lower my risk? Medical care The most important thing you can do to lower your risk for is to get routine medical care during ( care). If you have a high risk of , you may be referred to a health care provider who specializes in managing high-risk pregnancies (perinatologist). You may be given medicine to help prevent . Lifestyle changes Certain lifestyle changes can also lower your risk of : Wait at least 6 months after a to become again. Try to plan for when you are between 19 and 35 years old. Get to a healthy weight before getting . If you are overweight, work with your health care provider to safely lose weight. Do not use any products that contain nicotine or tobacco, such as cigarettes and e-cigarettes. If you need help quitting, ask your health care provider. Do not drink alcohol. Do not use drugs. Where to find support For more support, consider: Talking with your health care provider. Talking with a therapist or substance abuse counselor, if you need help quitting. Working with a diet and laboratory technical specialist (dietitian) or a dolphin trainer to maintain a healthy weight. Joining a support group. Where to find more information Learn more about preventing from: Centers for Disease Control and Prevention: cdc.gov/reproductivehealth/mater nalinfanthealth/pretermbirth.htm March of Dimes: marchofdimes.org/complications/p remature-babies.aspx [place] Association: americanpregnancy.org/labor-and- /premature-labor Contact a health care provider if: You have any of the following signs of labor before 37 weeks: ?A change or increase in vaginal discharge. ?Fluid leaking from your vagina. ?Pressure or cramps in your lower abdomen. ?A backache that does not go away or gets worse. ?Regular tightening (contractions) in your lower abdomen. Summary means having your baby during weeks 20 37 of . may put your baby at risk for physical and mental problems. Getting good care can help prevent . You can lower your risk of by making certain lifestyle changes, such as not smoking and not using alcohol. This information is not intended to replace advice given to you by your health care provider. Make sure you discuss any questions you have with your health care provider. Document Released: 04/18/2016 Document Revised: 02/15/2018 Document Reviewed: 11/11/2016 [employer] Patient Education 2020 [employer]. Follow Up Care 01/08/2022 07:53:50 With:OB, OB CLINIC Address: [address] [place] [address]- When: Unknown With:OB, OB CLINIC Address: [address] [place] [address]- When: Unknown [facility] 01-10-2022 Note Discharge Instructions Thank you for allowing [facility] to assist you with your healthcare needs. The following is important discharge information regarding your hospital visit. What to do next Instructions From Your Doctor Follow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 Rice, crackers, bananas, Jell-O, cooked carrots, applesauce. ___ [place] diet. Avoid caffeine, chocolate, alcohol, spiced/greasy foods. URINARY TRACT INFECTION ___ Drink 8-12 glasses of water every day. ___ Urinate frequently; do not limit fluids to reduce frequency of urination. ___ Call your physician if burning and frequency with urination returns after taking all your medication. ___ Call your physician if you have a temperature of 100.4 degrees Fahrenheit or higher. ___ Wipe from front to back. SIGNS OF PRE-ECLAMPSIA ___ Severe heartburn. ___ Persistent headache not relieved by Tylenol. ___ Increased in swelling of face, hands and feet. ___ Blurred vision, double vision, or spots in the eyes. ___ Persistent vomiting. ___ *Convulsions or seizures. LABOR ___ Restrict activity. ___ Drink 8-12 glasses of water every day. ___ Urinate frequently ___ Pelvic rest. No sexual intercourse/ Call your physician if you experience: ___ Increase in vaginal discharge, leaking fluid, or vaginal bleeding. ___ More than 4, 5, or 6 contractions in one hour. ___ Burning and frequency with urination. DECREASED MOVEMENT ___ Lie down on your left side, drink some fluids and relax. Count the movements. You need tohave 10 movements in 2 hours. ___ If you do not feel the 10 movements, call your physician. OTHER ___ After an exam you may experience some spotting or discharge. As long as it is not bright red and heavy like a period or continues to leak as if your water broke, it is to be expected. ___ LABOR Call your physician if you experience: ___ Painful uterine contractions every ___ minutes for ___ hours. ___A gush or continuous trickle of watery discharge. COME TO THE HOSPITAL AND CALL PHYSICIAN IF: ___ Your abdomen feels continually firm. ___ *Bleeding is bright red and enough to saturate a pad in one hour or less. *Call 911 or go to the nearest Emergency Room for assistance. Form D: 02/24 Follow Up Care 12/02/2021 08:43:06 With:Follow up with primary care provider Address:Unknown When: Unknown [facility] 09-16-2022 Hospital Discharge instructions Patient Education 12/02/2021 08:18:26 Understanding Anxiety Disorders Understanding Anxiety Disorders Almost everyone gets nervous now and then. It s normal to have knots in your stomach before a test,or for your heart to race on a first date. But an anxiety disorder is much more than a case of nerves. In fact, its symptoms may be overwhelming. But treatment can relieve many of these symptoms. Talking to your healthcare provider is the first step. What are anxiety disorders? An anxiety disorder causes intense feelings of panic and fear. These feelings may arise for no apparent reason. And they tend to recur again and again. They may prevent you from coping with life and cause you great distress. As a result, you may avoid anything that triggers your fear. In extreme cases, you may never leave the house. Anxiety disorders may cause other symptoms, such as: Obsessive thoughts that are unwanted and you can t control Constant nightmares or painful thoughts of the past Nausea, sweating, and muscle tension Trouble sleeping or concentrating What causes anxiety disorders? Anxiety disorders tend to run in families. For some people, childhood abuse or neglect may play a role. For others, stressful life events or trauma may trigger anxiety disorders. Anxiety can trigger low self-esteem and poor coping skills. Panic disorder. This causes an intense fear of being in danger. Phobias. These are extreme fears of certain objects, places, or events. Obsessive-compulsive disorder. This causes you to have unwanted thoughts and urges. You also may perform certain actions over and over. Posttraumatic stress disorder. This occurs in people who have survived a terrible ordeal. It can cause nightmares and flashbacks about the event. Generalized anxiety disorder. This causes constant worry that can greatly disrupt your life. Getting better You may believe that nothing can help you. Or, you might fear what others may think. But most anxiety symptoms can be eased. Having an anxiety disorder is nothing to be ashamed of. Most people do best with treatment that combines medicine and individual and group therapy. These aren t cures. But they can help you live a healthier life. 4074-6129 [employer] [address] [place] [address]. All rights reserved. This information is not intended as a substitute for professional medical care. Always follow yourhealthcare professional's instructions. Follow Up Care 12/02/2021 08:01:12 With:your OB Address: When:2-4 days [facility] 09-16-2022 Note Discharge Instructions Thank you for allowing [facility] to assist you with your healthcare needs. The following is importantdischarge information regarding your hospital visit. Diagnosis from Today's Visit Anxiety Anxiety What to Do Next Instructions from Your Care Team Call your GAS TURB[employer] POWERPLANT MECHANIC today to discuss your anxiety issues. There are treatment and therapy options for women. If you ever feel suicidal please report immediately to emergency department. No qualifying data available. Post Acute Orders No qualifying data available. You Need to Schedule the Following Appointments Follow Up with your OB When Within 2-4 days Where: Allergies NKA Medications Please ask your primary doctor or pharmacist before taking any other medication not listed, including over the counter drugs, herbal medications, vitamins and or supplements as they may interact withyour home medications. What When Instructions Last Dose Unchanged amoxicillin (amoxicillin 500 mg oral capsule) TAKE 1 CAPSULE THREE TIMES DAILY UNTIL GONE Unchanged naproxen (naproxen 500 mg oral tablet) TAKE 1 TABLET BY MOUTH TWICE DAILY Please take this list to your next doctor s visit. Bring all medications you take, including over the counter medications, herbals and other supplements with you to your doctor s visit. Patients and families are reminded to discard old lists and to update any records with all medication providers or retail pharmacies. Education Materials Understanding Anxiety Disorders Almost everyone gets nervous now and then. It s normal to have knots in your stomach before a test,or for your heart to race on a first date. But an anxiety disorder is much more than a case of nerves. In fact, its symptoms may be overwhelming. But treatment can relieve many of these symptoms. Talking to your healthcare provider is the first step. What are anxiety disorders? An anxiety disorder causes intense feelings of panic and fear. These feelings may arise for no apparent reason. And they tend to recur again and again. They may prevent you from coping with life and cause you great distress. As a result, you may avoid anything that triggers your fear. In extreme cases, you may never leave the house. Anxiety disorders may cause other symptoms, such as: Obsessive thoughts that are unwanted and you can t control Constant nightmares or painful thoughts of the past Nausea, sweating, and muscle tension Trouble sleeping or concentrating What causes anxiety disorders? Anxiety disorders tend to run in families. For some people, childhood abuse or neglect may play a role. For others, stressful life events or trauma may trigger anxiety disorders. Anxiety can trigger low self-esteem and poor coping skills. Panic disorder. This causes an intense fear of being in danger. Phobias. These are extreme fears of certain objects, places, or events. Obsessive-compulsive disorder. This causes you to have unwanted thoughts and urges. You also may perform certain actions over and over. Posttraumatic stress disorder. This occurs in people who have survived a terrible ordeal. It can cause nightmares and flashbacks about the event. Generalized anxiety disorder. This causes constant worry that can greatly disrupt your life. Getting better You may believe that nothing can help you. Or, you might fear what others may think. But most anxiety symptoms can be eased. Having an anxiety disorder is nothing to be ashamed of. Most people do best with treatment that combines medicine and individual and group therapy. These aren t cures. But they can help you live a healthier life. 0372-4921 [employer] [address] [place] [address], [place] [address]. All rights reserved. This information is not intended as a substitute for professional medical care. Always follow yourhealthcare professional's instructions. Additional Information VACCINATE! IT SAVES LIVES! Members of the community who have not yet received the COVID-19 vaccine and would like to receive it can visit one of [facility] vaccine clinics. There are many vaccine clinic locations within the [facility]. For locations and available times, please visit [email or web address]. It is important to note that some COVID mobile vaccine clinics are held outdoors and may be canceled in rainy orstormy conditions. To learn more about pediatric vaccinations (ages 5-11), we invite you to visit the [facility] webpage. [email or web address] learn more about the COVID-19 vaccine, we invite you to visit the [facility] website for a list of frequently asked questions. [email or web address] [facility] Patient Portal Access Instructions: Stay connected with your healthcare team and access your personal medical information anytime with the [facility] Patient Portal. If you would like a full copy of your medical records please contact the [facility] Medical Records Department Sunday through Sunday between 8a.m. and 4:30p.m. Please follow the directions below to access the portal: 1.Access the email account you provided upon registration to the [facility].2.Look for an invitation email from [facility].3.Open the email and access the invitation link: Accept Invitation to [facility]4.Fill in the required young to create your account. Sign into www.[email or web address] with your username and password that you created in the above steps to stay up to date. You can then view a summary of results, a summary of your visits, and the ability to download your summaries to your computer or send the information securely to a physician. Remember that your healthcare information is confidential, so carefully consider who you will allow to register on the [facility] Patient Portal for access to your information. You can also access the [facility] Patient Portal on the [employer] brittany. Simply click on Health Records under [place] and then click on the [employer] logo. HOW TO SAFELY DISPOSE OF PRESCRIPTION MEDICATIONS Please use one of the following methods to safely dispose of your unused medications. 1.Use a drug disposal kit: the drug disposal pouch allows you to safely discard your old and unuseddrugs. Ask your nurse to give you one when you are discharged.2.Visit a local take-back location: Many local pharmacies and police departments have programs that collect old and unwanted prescriptiondrugs. Call your local pharmacy or go to http://Vocalcom/5K7Cf4w to find one close to you.3.Make use of household items: Use cat litter or old coffee grounds to dispose medications if other options arenot available. Mix your drugs with these household products, seal them in an airtight container andthrow it into the garbage. Call [facility]: [phone] to be sure your drugs can be disposed of in this way. Some medicines may require a different approach.4.Never flush your medications down the toilet. IF YOU HAVE BEEN PRESCRIBED AN OPIOIDS FOR PAIN If you have been prescribed an opioid (such as hydrocodone, oxycodone or morphine), it is critical to understand the possible side effects and risks of opioid pain medications. Even when taken as directed, opioids can have several side effects including: Tolerance, meaning you might need to take more of a medication for the same pain relief. Nausea, vomiting and/or constipation. Sleepiness, dizziness, dry mouth, confusion, depression or itching. Physical dependence, meaning you have withdrawal symptoms when a medication is stopped ? this can develop within a few days. KNOW YOUR RESPONSIBILITIES It is important to know exactly how much and how often to take the opioid pain medications you are prescribed. Never take opioids in higher amounts or more often than prescribed. Do not combine opioids with alcohol or other drugs that cause drowsiness, such as benzodiazepines, also known as benzos,including diazepam and alprazolam, muscle relaxants or sleep aids. Never sell or share prescriptionopioids. This is illegal. Store opioids in a secure place and out of reach of others (including children, family, friends and visitors). The last page(s) of this document has been signed and retained as a CHART COPY Signatures Patient Education Materials Understanding Anxiety Disorders Medication Leaflets My discharge plan and instructions have been reviewed and explained to me and I,BROTHERS, CHAPINCITO Singh understand my current condition and have read and understand these discharge instructions. I have received a written copy of the plan/instructions. If I have questions, I am aware that I should contact my doctor. Patient/Account Underwriter Signature: Date/Time: Relationship to Patient: Witness Name/Signature: Date/Time: [facility]08-13-2022 Hospital Discharge instructions Patient Education 10/29/2021 21:44:01 Urinary Tract Infections in Women Urinary Tract Infections in Women Urinary tract infections (UTIs) are most often caused by bacteria. These bacteria enter the urinarytract. The bacteria may come from outside the body. Or they may travel from the skin outside the rectum or vagina into the urethra. Female anatomy makes it easy for bacteria from the bowel to enter awoman s urinary tract, which is the most common source of UTI. This means women develop UTIs more often than men. Pain in or around the urinary tract is a common UTI symptom. But the only way to knowfor sure if you have a UTI for the healthcare provider to test your urine. The two tests that may be done are the urinalysis and urine culture. Types of UTIs Cystitis. A bladder infection (cystitis) is the most common UTI in women. You may have urgent or frequent urination. You may also have pain, burning when you urinate, and bloody urine. Urethritis. This is an inflamed urethra, which is the tube that carries urine from the bladder to outside the body. You may have lower stomach or back pain. You may also have urgent or frequent urination. Pyelonephritis. This is a kidney infection. If not treated, it can be serious and damage your kidneys. In severe cases, you may need to stay in the hospital. You may have a fever and lower back pain. Medicines to treat a UTI Most UTIs are treated with antibiotics. These kill the bacteria. The length of time you need to take them depends on the type of infection. It may be as short as 3 days. If you have repeated UTIs, you may need a low-dose antibiotic for several months. Take antibiotics exactly as directed. Don t stop taking them until all of the medicine is gone. If you stop taking the antibiotic too soon, the infection may not go away. You may also develop a resistance to the antibiotic. This can make it much harder to treat. Lifestyle changes to treat and prevent UTIs The lifestyle changes below will help get rid of your UTI. They may also help prevent future UTIs. Drink plenty of fluids. This includes water, juice, or other caffeine-free drinks. Fluids help flush bacteria out of your body. Empty your bladder. Always empty your bladder when you feel the urge to urinate. And always urinatebefore going to sleep. Urine that stays in your bladder can lead to infection. Try to urinate before and after sex as well. Practice good personal hygiene. Wipe yourself from front to back after using the toilet. This helpskeep bacteria from getting into the urethra. Use condoms during sex. These help prevent UTIs caused by sexually transmitted bacteria. Also don'tuse spermicides during sex. These can increase the risk for UTIs. Choose other forms of control instead. For women who tend to get UTIs after sex, a low-dose of a preventive antibiotic may be used. Be sure to discuss this option with your healthcare provider. Follow up with your healthcare provider as directed. He or she may test to make sure the infection has cleared. If needed, more treatment may be started. 2897-6286 [employer] [address] [place] [address]. All rights reserved. This information is not intended as a substitute for professional medical care. Always follow yourhealthcare professional's instructions. Follow Up Care 10/29/2021 20:38:17 With:your OBGYN Address: [facility] Discharge summary Discharge Instructions Thank you for allowing [facility] to assist you with your healthcare needs. The following is importantdischarge information regarding your hospital visit. Diagnosis from Today's Visit UTI - Urinary tract infection Flank pain - R What to Do Next Instructions from Your Care Team No qualifying data available. Post Acute Orders No qualifying data available. You Need to Schedule the Following Appointments Follow Up with your OBGYN When Within 2-4 days Where: Allergies NKA Medications Please ask your primary doctor or pharmacist before taking any other medication not listed, including over the counter drugs, herbal medications, vitamins and or supplements as they may interact withyour home medications. What When Instructions Last Dose Unchanged amoxicillin (amoxicillin 500 mg oral capsule) TAKE 1 CAPSULE THREE TIMES DAILY UNTIL GONE Unchanged naproxen (naproxen 500 mg oral tablet) TAKE 1 TABLET BY MOUTH TWICE DAILY Please take this list to your next doctor s visit. Bring all medications you take, including over the counter medications, herbals and other supplements with you to your doctor s visit. Patients and families are reminded to discard old lists and to update any records with all medication providers or retail pharmacies. Education Materials Urinary Tract Infections in Women Urinary tract infections (UTIs) are most often caused by bacteria. These bacteria enter the urinarytract. The bacteria may come from outside the body. Or they may travel from the skin outside the rectum or vagina into the urethra. Female anatomy makes it easy for bacteria from the bowel to enter awoman s urinary tract, which is the most common source of UTI. This means women develop UTIs more often than men. Pain in or around the urinary tract is a common UTI symptom. But the only way to knowfor sure if you have a UTI for the healthcare provider to test your urine. The two tests that may be done are the urinalysis and urine culture. Types of UTIs Cystitis. A bladder infection (cystitis) is the most common UTI in women. You may have urgent or frequent urination. You may also have pain, burning when you urinate, and bloody urine. Urethritis. This is an inflamed urethra, which is the tube that carries urine from the bladder to outside the body. You may have lower stomach or back pain. You may also have urgent or frequent urination. Pyelonephritis. This is a kidney infection. If not treated, it can be serious and damage your kidneys. In severe cases, you may need to stay in the hospital. You may have a fever and lower back pain. Medicines to treat a UTI Most UTIs are treated with antibiotics. These kill the bacteria. The length of time you need to take them depends on the type of infection. It may be as short as 3 days. If you have repeated UTIs, you may need a low-dose antibiotic for several months. Take antibiotics exactly as directed. Don t stop taking them until all of the medicine is gone. If you stop taking the antibiotic too soon, the infection may not go away. You may also develop a resistance to the antibiotic. This can make it much harder to treat. Lifestyle changes to treat and prevent UTIs The lifestyle changes below will help get rid of your UTI. They may also help prevent future UTIs. Drink plenty of fluids. This includes water, juice, or other caffeine-free drinks. Fluids help flush bacteria out of your body. Empty your bladder. Always empty your bladder when you feel the urge to urinate. And always urinatebefore going to sleep. Urine that stays in your bladder can lead to infection. Try to urinate before and after sex as well. Practice good personal hygiene. Wipe yourself from front to back after using the toilet. This helpskeep bacteria from getting into the urethra. Use condoms during sex. These help prevent UTIs caused by sexually transmitted bacteria. Also don'tuse spermicides during sex. These can increase the risk for UTIs. Choose other forms of control instead. For women who tend to get UTIs after sex, a low-dose of a preventive antibiotic may be used. Be sure to discuss this option with your healthcare provider. Follow up with your healthcare provider as directed. He or she may test to make sure the infection has cleared. If needed, more treatment may be started. 9096-2950 [employer] [address] [place] [address]. All rights reserved. This information is not intended as a substitute for professional medical care. Always follow yourhealthcare professional's instructions. Additional Information VACCINATE! IT SAVES LIVES! Members of the community who have not yet received the COVID-19 vaccine and would like to receive it can visit one of [facility] vaccine clinics. There are many vaccine clinic locations within the [facility]. For locations and available times, please visit [email or web address]. It is important to note that some COVID mobile vaccine clinics are held outdoors and may be canceled in rainy orstormy conditions. To learn more about pediatric vaccinations (ages 5-11), we invite you to visit the [facility] webpage. [email or web address] learn more about the COVID-19 vaccine, we invite you to visit the [facility] website for a list of frequently asked questions. [email or web address] [facility] Patient Portal Access Instructions: Stay connected with your healthcare team and access your personal medical information anytime with the [facility] Patient Portal. If you would like a full copy of your medical records please contact the [facility] Medical Records Department Sunday through Sunday between 8a.m. and 4:30p.m. Please follow the directions below to access the portal: 1.Access the email account you provided upon registration to the [facility].2.Look for an invitation email from [facility].3.Open the email and access the invitation link: Accept Invitation to [facility]4.Fill in the required young to create your account. Sign into [email or web address].[email or web address] with your username and password that you created in the above steps to stay up to date. You can then view a summary of results, a summary of your visits, and the ability to download your summaries to your computer or send the information securely to a physician. Remember that your healthcare information is confidential, so carefully consider who you will allow to register on the [facility] Patient Portal for access to your information. You can also access the [employer] [facility] Patient Portal on the [employer] brittany. Simply click on Health Records under [place] and then click on the [employer] logo. HOW TO SAFELY DISPOSE OF PRESCRIPTION MEDICATIONS Please use one of the following methods to safely dispose of your unused medications. 1.Use a drug disposal kit: the drug disposal pouch allows you to safely discard your old and unuseddrugs. Ask your nurse to give you one when you are discharged.2.Visit a local take-back location: Many local pharmacies and police departments have programs that collect old and unwanted prescriptiondrugs. Call your local pharmacy or go to http://QuarterSpot.SurveyMonkey/7Y8Os9p to find one close to you.3.Make use of household items: Use cat litter or old coffee grounds to dispose medications if other options arenot available. Mix your drugs with these household products, seal them in an airtight container andthrow it into the garbage. Call [facility]: [phone] to be sure your drugs can be disposed of in this way. Some medicines may require a different approach.4.Never flush your medications down the toilet. IF YOU HAVE BEEN PRESCRIBED AN OPIOIDS FOR PAIN If you have been prescribed an opioid (such as hydrocodone, oxycodone or morphine), it is critical to understand the possible side effects and risks of opioid pain medications. Even when taken as directed, opioids can have several side effects including: Tolerance, meaning you might need to take more of a medication for the same pain relief. Nausea, vomiting and/or constipation. Sleepiness, dizziness, dry mouth, confusion, depression or itching. Physical dependence, meaning you have withdrawal symptoms when a medication is stopped ? this can develop within a few days. KNOW YOUR RESPONSIBILITIES It is important to know exactly how much and how often to take the opioid pain medications you are prescribed. Never take opioids in higher amounts or more often than prescribed. Do not combine opioids with alcohol or other drugs that cause drowsiness, such as benzodiazepines, also known as benzos,including diazepam and alprazolam, muscle relaxants or sleep aids. Never sell or share prescriptionopioids. This is illegal. Store opioids in a secure place and out of reach of others (including children, family, friends and visitors). The last page(s) of this document has been signed and retained as a CHART COPY Signatures Patient Education Materials Urinary Tract Infections in Women Medication Leaflets My discharge plan and instructions have been reviewed and explained to me and I,BROTHERS, CHAPINCITO Singh understand my current condition and have read and understand these discharge instructions. I have received a written copy of the plan/instructions. If I have questions, I am aware that I should contact my doctor. Patient/Account Underwriter Signature: Date/Time: Relationship to Patient: Witness Name/Signature: Date/Time: [facility]05-09-2022 Hospital Discharge instructions Patient Education 07/25/2021 15:25:44 Bleeding During Early Bleeding During Early Ultrasound can help check the health of your fetus. If you ve had bleeding early in your , you re not alone. Many other women have had early bleeding, too. And in most cases, nothing is wrong. But your healthcare provider still needsto know about it. He or she may want to do tests to find out why you re bleeding. Call your healthcare provider if you notice bleeding during . What causes early bleeding? The cause of bleeding early in is often unknown. But many factors early on in may lead to bleeding or spotting. These include sexual intercourse, which may cause bleeding in any trimester. Here are some other causes: Implantation of the embryo on the uterine wall Subchorionic hemorrhage (bleeding between the sac membrane and the uterus) Miscarriage Ectopic (tubal) If you notice spotting Spotting (very light bleeding) is the most common type of bleeding in early . If you notice it, call your healthcare provider. Chances are, he or she will tell you that you can care for yourself at home. If tests are needed Depending on how much you bleed, your healthcare provider may ask you to come in for some tests. A pelvic exam, for instance, can help see how far along your is. You also may have an ultrasound or a Doppler test. These imaging tests use sound waves to check the health of your fetus. The ultrasound may be done on your belly or inside your vagina. Your healthcare provider also may order aspecial blood test. This test compares your hormone levels in blood samples taken 2 days apart. Theresults can help your healthcare provider learn more about the implantation of the embryo. Your blood type will also need to be checked to evaluate whether you will need to be treated for Rh sensitization. Warning signs If your bleeding doesn t stop or if you notice any of the following, seek medical help right away: Soaking a sanitary pad each hour Bleeding like you re having a period Cramping or severe belly pain Feeling dizzy or faint Tissue passing through your vagina Bleeding at any time after the first trimester Questions you may be asked Though not normal, bleeding early in is common. If you ve noticed any bleeding, you may be concerned. But keep in mind that bleeding alone doesn t mean something is wrong. Call your healthcare provider right away, though. He or she may ask you questions like these to help find the cause of your bleeding: When did your bleeding start? Is your bleeding very light (spotting) or is it like a period? Is the blood bright red or brownish? Have you had sexual intercourse recently? Have you had pain or cramping? Have you felt dizzy or faint? Monitoring your Bleeding will often stop as quickly as it began. Your may go on a normal path again. You may need to make a few extra visits. But you and your baby will most likely be fine. [id number] [employer] [address] [place] [address], [place] [address]. All rights reserved. This information is not intended as a substitute for professional medical care. Always follow [facility] instructions. 07/25/2021 15:23:51 Bleeding During Early Bleeding During Early Ultrasound can help check the health of your fetus. If you ve had bleeding early in your , you re not alone. Many other women have had early bleeding, too. And in most cases, nothing is wrong. But your healthcare provider still needsto know about it. He or she may want to do tests to find out why you re bleeding. Call your healthcare provider if you notice bleeding during . What causes early bleeding? The cause of bleeding early in is often unknown. But many factors early on in may lead to bleeding or spotting. These include sexual intercourse, which may cause bleeding in any trimester. Here are some other causes: Implantation of the embryo on the uterine wall Subchorionic hemorrhage (bleeding between the sac membrane and the uterus) Miscarriage Ectopic (tubal) If you notice spotting Spotting (very light bleeding) is the most common type of bleeding in early . If you notice it, call your healthcare provider. Chances are, he or she will tell you that you can care for yourself at home. If tests are needed Depending on how much you bleed, your healthcare provider may ask you to come in for some tests. A pelvic exam, for instance, can help see how far along your is. You also may have an ultrasound or a Doppler test. These imaging tests use sound waves to check the health of your fetus. The ultrasound may be done on your belly or inside your vagina. Your healthcare provider also may order aspecial blood test. This test compares your hormone levels in blood samples taken 2 days apart. Theresults can help your healthcare provider learn more about the implantation of the embryo. Your blood type will also need to be checked to evaluate whether you will need to be treated for Rh sensitization. Warning signs If your bleeding doesn t stop or if you notice any of the following, seek medical help right away: Soaking a sanitary pad each hour Bleeding like you re having a period Cramping or severe belly pain Feeling dizzy or faint Tissue passing through your vagina Bleeding at any time after the first trimester Questions you may be asked Though not normal, bleeding early in is common. If you ve noticed any bleeding, you may be concerned. But keep in mind that bleeding alone doesn t mean something is wrong. Call your healthcare provider right away, though. He or she may ask you questions like these to help find the cause of your bleeding: When did your bleeding start? Is your bleeding very light (spotting) or is it like a period? Is the blood bright red or brownish? Have you had sexual intercourse recently? Have you had pain or cramping? Have you felt dizzy or faint? Monitoring your Bleeding will often stop as quickly as it began. Your may go on a normal path again. You may need to make a few extra visits. But you and your baby will most likely be fine. [id number] [employer] [address] [place] [address], [place] [address]. All rights reserved. This information is not intended as a substitute for professional medical care. Always follow yourhealthcare professional's instructions. Follow Up Care 07/25/2021 10:25:52 With:Your OB physician tomorrow as scheduled Address:Unknown When:07/26/2021 With:HAZEL PINZON MD Address: [address] [facility] [place] [address] [phone] When:2-4 days [facility] Evaluation + Plan note No data available for this section [facility] Hospital Discharge instructions No data available for this section [facility] Progress note No data available for this section [facility] Summary Purpose Family History No Family History Records FoundNo Family History Records FoundNo Family History Records FoundNo Family History Records FoundNo Family History Records Found Advance Directives No Advanced Directives Records FoundNo Advanced Directives Records FoundNo Advanced Directives Records FoundNo Advanced Directives Records FoundNo Advanced Directives Records Found Additional Source Comments INFORMATION SOURCE (unrecogn ized section and content) DATE CREATED AUTHOR AUTHOR'S ORGANIZ ATION 01/29/2020 [facility] DATE CREATED AUTHOR AUTHOR'S ORGANIZ ATION 04/27/2021 [facility] DATE CREATED AUTHOR AUTHOR'S ORGANIZ ATION 01/30/2022 [facility] ([place] DATE CREATED AUTHOR AUTHOR'S ORGANIZ ATION 02/15/2022 [facility] Care Team (unrecognized sect ion and content) Personnel Name: HAZEL PINZON MD Address: [address] [place] [address]- [place] Care Team (unrecognized sect ion and content) Care Team Related Persons Name: DONELL COLLADO Care Team Related Persons Name: DONELL COLLADO Care Team Related Persons Name: DONELL COLLADO Care Team Related Persons Name: DONELL COLLADO Care Team Related Persons Name: DONELL COLLADO FOR RECORDS PERTAINING TO PATIENTS WHO ARE OR HAVE BEEN ENROLLED IN A CHEMICAL DEPENDENCY/SUBSTANCEABUSE PROGRAM, SOME INFORMATION MAY BE OMITTED. This clinical summary was aggregated from multiple sources. Caution should be exercised in using it in the provision of clinical care. This summary normalizes information from multiple sources, and as a consequence, information in this document may materially change the coding, format and clinical context of patient data. In addition, data may be omitted in some cases. CLINICAL DECISIONS SHOULD BE BASED ON THE PRIMARY CLINICAL RECORDS. [facility]. provides no warranty or guarantee of the accuracy or completeness of information in this document.
[2023-04-22 19:50] LABS: Absolute Lymphocyte Count 1.21 X10^3/uL (0.83-4.51); Absolute Neutrophil Count 8.9 X10^3/uL (2.0-7.7); Basophil# 0.03 X10^3/uL; Basophil% 0.3 % (0-1); Hematocrit 37.4 % (37-47); Hemoglobin 12.3 g/dL (12.0-15.0); Lymphocyte # 1.21 X10^3/ul (0.83-4.51); Lymphocyte % 11.4 % (19-41); Mean Corp Hgb Conc 32.9 g/dL (32-36); Mean Corpuscular Hgb 29.6 pg (27.0-32.0); Mean Corpuscular Volume 90.1 fL (81-99); Mean Platelet Vol. 10.8 fl (6.2-12.0); Monocyte# 0.46 X10^3/uL; Monocyte% 4.3 % (0-10); NRBC Flagged by Analyzer 0 % (0-5); Neutrophil # 8.86 X10^3/uL (2.7-7.7); Neutrophil % 83.6 % (47-70); Platelet Count 257 K/mm3 (150-450); RBC Distribution Width CV 12.6 % (11.6-14.6); RBC Distribution Width SD 41.5 fl (35.1-43.9); Red Blood Count 4.15 M/mm3 (4.2-5.4); White Blood Count 10.6 K/mm3 (4.4-11.0)
[2023-04-22 19:59] LABS: Anion Gap 5 (5-15); BUN 14 mg/dL (7-18); BUN/Creat Ratio 28.7 RATIO (10-20); Calcium,Total 9.5 mg/dL (8.5-10.1); Chloride 113 mmol/L (98-107); Creatinine, Serum 0.49 mg/dL (0.55-1.02); EST Glomerular Filtration Rate 169 mL/min (>60); Est Glom Filt Rate - Afr Amer 205 mL/min (>60); Estimated Creatinine Clearance 135.89 ml/min; Glucose 123 mg/dL (74-106); Potassium 3.4 mmol/L (3.5-5.1); Sodium Level 142 mmol/L (136-145)
[2023-04-22 20:06] LABS: Amphetamine Urine VISTA NEGATIVE (<1000 ng/mL); Barbiturate Urine VISTA NEGATIVE (< 200 ng/mL); Benzodiazepine Urine VISTA NEGATIVE (< 200 ng/mL); Cocaine Urine VISTA NEGATIVE (< 300 ng/mL); Ecstacy Urine VISTA NEGATIVE (< 500 ng/mL); Methadone Urine VISTA NEGATIVE (< 300 ng/mL); PCP Urine VISTA NEGATIVE (< 25 ng/mL); THC Urine VISTA POSITIVE (< 50 ng/mL); Vista UDS pH Range 4
[2023-04-22 20:13] LABS: Internal QC Validated? YES +Cl - CLEAR BKGD; Pregnancy, Serum, hCG Quali. NEGATIVE Negative
[2023-04-22 20:14] LABS: Record Kit Lot#, Serum Preg. HCG0000718086
[2023-04-22 20:22] VITALS: RESP 15
--- NOTE | 2023-04-22 20:39 | ED.RN ---
CRISIS CALLED, CHART FAXED
[2023-04-22 20:42] LABS: Acetaminophen (Tylenol) Level < 2.0 ug/mL (10.0-30.0); Alcohol, Blood (Medical)-Serum < 3.0 mg/dL; Salicylate < 1.7 mg/dL (2.8-20.0)
[2023-04-22 22:00] VITALS: RESP 15
[2023-04-23] VITALS: BP 128/74; PULSE 86; RESP 15; O2SAT 99
[2023-04-23] MEDS: LORazepam 1 MG Tablet PO (00:48)
--- NOTE | 2023-04-23 01:26 | ED.RN ---
patient is yelliing demanding something to knock her out or else she is going to hurt herself punch myself in the face She expresses frustration with being sent to a facility stating you've ruined my life 3 days wont fix me I'll end it all my parents will have to raise my kid She allowed this nurse to obtain COVID swab and apply nicotine patch. Abmulated with ELECTRICAL LINEWORKER to restroom. Currently in her room sitting in the bed sitter at bedside.
[2023-04-23 01:34] VITALS: RESP 16
[2023-04-23 03:00] VITALS: RESP 16
[2023-04-23 04:05] VITALS: RESP 16
[2023-04-23 07:01] VITALS: RESP 16
[2023-04-23 08:27] VITALS: BP 131/72; PULSE 90; RESP 16; TEMP 36.3; O2SAT 100
== END 2023-04-23 08:56 ==
LOC: ED 19:03
PROVIDERS: Emergency Provider Emergency Medicine; PCP Family Medicine; Visit Provider Emergency Medicine
DX: R45.850 Homicidal ideations (principal); E87.6 Hypokalemia; R45.851 Suicidal ideations; F17.210 Nicotine dependence, cigarettes, uncomplicated
CPT/HCPCS: 80048; 80307; 80320; 80329; 84703; 85025; 87811; 99285; G0480

== ENCOUNTER → 2023-06-20 | Outpatient (CLI) | payer MEDICAID, SELFPAY ==
[2023-06-22 21:07] LABS: Chlamydia By Nucleic Acid AMP Negative (Negative); Gonococcus By Nucleic Acid AMP Negative (Negative)
== END | disposition home or self-care (01) ==
LOC: LABSPEC 14:09
PROVIDERS: PCP Family Medicine; Referring Provider Nurse Practitioner Women's Health; Visit Provider Nurse Practitioner Women's Health
DX: Z20.2 Contact with and (suspected) exposure to infections with a predominantly sexual mode of transmission (principal); Z11.3 Encounter for screening for infections with a predominantly sexual mode of transmission
CPT/HCPCS: 87255; 87491; 87591

== ENCOUNTER → 2024-01-03 | Outpatient (CLI) | payer MEDICAID, SELFPAY ==
--- NOTE | 2024-01-03 11:42 | RAD_ITS ---
INDICATION: knee injury EXAMINATION/TECHNIQUE: X-RAY - LEFT XR Knee 3 Views 3 VIEWS COMPARISON: Right knee dated October 16, 2018 FINDINGS: SOFT TISSUES: No soft tissue swelling or gas. No radiopaque foreign body. BONES/JOINTS: No acute fracture or subluxation.. Normal alignment. Preservation of the joint space.. No sclerotic or destructive changes observed. RAD/Knee 3 Views IMPRESSION: No acute osseous injury. Electronically Signed: Mira Arciniega MD at 13:26 EDT ,
== END | disposition home or self-care (01) ==
PROVIDERS: PCP Family Medicine; Referring Provider Nurse Practitioner Family; Visit Provider Nurse Practitioner Family
DX: S89.90XA Unspecified injury of unspecified lower leg, initial encounter (principal)
CPT/HCPCS: 73562

== ENCOUNTER → 2024-09-18 | Outpatient (CLI) | payer MEDICAID, SELFPAY ==
[2024-09-18 18:47] LABS: Anion Gap 13 (5-15); BUN 11 mg/dL (4-19); BUN/Creat Ratio 25.3 RATIO (10-20); Calcium,Total 9.3 mg/dL (7.6-11.0); Carbon Dioxide 19.8 mmol/L (21.0-32.0); Chloride 104 mmol/L (98-108); Glucose 97 mg/dL (70-99); Magnesium 1.9 mg/dL (1.5-2.2); Potassium 3.5 mmol/L (3.3-5.1)
[2024-09-18 18:54] LABS: Hematocrit 31.2 % (37-47); Hemoglobin 10.4 g/dL (12.0-15.0); Mean Corp Hgb Conc 33.3 g/dL (32-36); Mean Corpuscular Volume 95.1 fL (81-99); Mean Platelet Vol. 11.2 fl (6.2-12.0); Platelet Count 279 K/mm3 (150-450); RBC Distribution Width CV 12.3 % (11.6-14.6); RBC Distribution Width SD 42.5 fl (35.1-43.9); Red Blood Count 3.28 M/mm3 (4.2-5.4); White Blood Count 8.4 K/mm3 (4.4-11.0)
== END | disposition home or self-care (01) ==
LOC: MTLAB 16:07
PROVIDERS: PCP Family Medicine; Referring Provider Family Medicine; Visit Provider Family Medicine
DX: R00.2 Palpitations (principal)
CPT/HCPCS: 36415; 80048; 83735; 84443; 85027